=== PATIENT | female | born 1955 | race Caucasian/White ===

== ENCOUNTER 2020-11-16 18:11 | Inpatient (IN) | payer MEDICARE, OTHER ==
[~2020-11-16] VITALS: Ht 137.2 cm; Wt 54.9 kg
--- NOTE | 2020-11-16 18:39 | NUR ---
GPS/RN RECEIVED PT ON THE 5149 HOLD FROM [facility] NO ACUTE DISTRESS NOTED,VSS ON FACE TO SAFE ASSESSMENT NO SI OR HI REPORTED, AMBULATORY WITH FALL RISK. STRONGLY REFUSED TO TOUCH HER, TO DO SKIN ASSESSMENT AND TO SIGN ADMITTING PAPERWORK/CONSENTS. WILL ENDORSE TO MANAGER MARKET TO CONTINUE WITH ADMISSION
[2020-11-16 20:00] VITALS: BP 107/44
--- NOTE | 2020-11-16 20:30 | NUR ---
GPS RN NOTES: RECEIVED PATIENT SLEEPING IN BED, EASILY AROUSABLE. LABILE, UNCOOPERATIVE, EASILY IRRITABLE. PATIENT REFUSED SKIN ASSESSMENT, REFUSED TO SIGN ADMISSION PAPERWORK, REFUSED ACCU CHEK AND MRSA SWAB. WILL CONTINUE TO MONITOR.
--- NOTE | 2020-11-16 21:05 | NUR ---
GPS ASSEMBLER BODY NOTES: RECEIVED PATIENT FROM [facility], ORIGINALLY HOMELESS. PATIENT ADMITTED ON A 5150 HOLD FOR DTS. HOLD WAS PLACED ON 11/15/20 @ 2313. PER HOLD, PATIENT REPORTED SHE HAS BEEN FEELING SUICIDAL FOR A COUPLE OF DAYS AND WANTED TO KILL HERSELF BY CUTTING HER WRIST, BECAUSE THINGS ARE NOT GOING THE WAY SHE WANTS TEM TO GO. SHE ALSO REPORTED CUTTING HERSELF A DAY BEFORE SHE WAS PUT ON HOLD 11/14/20. WHILE AT [facility] PATIENT WAS DEMANDING, LOUD, ASKING STAFF TO WASH HER HANDS, ASKING FOR FOOD, AND LATER STATED "HONESTLY I JUST NEED HELP WITH HOUSING". UPON FACE TO FACE EVALUATION, PATIENT IS A/O X2-3, LABILE, UNCOOPERATIVE, IRRITABLE, REFUSED TO SIGN ADMISSION PAPERWORK, REFUSED ACCU CHEK AND MRSA SWAB. NO S/S OF DISTRESS. RESPIRATION EVEN AND UNLABORED WITH EQUAL RISE AND FALL OF THE CHEST, ON ROOM AIR. DENIES SI AND PAIN AT THIS TIME. PATIENT REFUSED ACCU CHEK, REFUSED BS, REFUSED TO SIGN ALL ADMISSION PAPERWORK AND REFUSED SKIN ASSESSMENT. PATIENT ADVISED OF HER HOLD AND PATIENT RIGHT HANDBOOK AND A GUIDE TO PRESCRIPTION MEDICATION BOOKLET GIVEN. PATIENT IS UNDER THE PSYCHIATRIC CARE OF DR RETANA AND MEDICAL CARE OF [facility]. BOTH HAVE BEEN INFORMED OF PATIENT ADMISSION AND ORDERS CARRIED OUT. PATIENT BELONGINGS WERE INVENTORIED AND CHECKED FOR CONTRABAND. CONTRABAND REMOVED AND STORED IN PATIENT HALLWAY LOCKER. PATIENT ADVANCE DIRECTIVES PREFERENCES, IMMUNIZATIONS QUESTIONER NECESSARY PAPERWORK COMPLETED. PATIENT EDUCATED ON THE USE OF CALL MCINTOSH. PATIENT BED IS LOCKED AND IN LOWEST POSITION AND PATIENT BED SIDE RAILS UP X2 FOR SAFETY. ALL PATIENT CARE NEEDS HAVE BEEN MET AT THIS TIME. PATIENT IS CURRENTLY SLEEPING COMFORTABLY IN BED. WILL CONTINUE TO MONITOR Q15 FOR SAFETY, MOOD AND BEHAVIOR.
[2020-11-16] MEDS ORDERED: BLOOD SUGAR DIAGNOSTIC 1 EACH STRIP IN ONE (21:30)
[2020-11-16] MEDS ORDERED: ACETAMINOPHEN 325 MG TABLET PO PRN (21:30)
[2020-11-16] MEDS ORDERED: ZOLPIDEM TARTRATE 5 MG TABLET PO PRN (21:30)
[2020-11-16] MEDS ORDERED: LORAZEPAM 0.5 MG TABLET PO PRN (21:30)
[2020-11-16] MEDS ORDERED: MAGNESIUM HYDROXIDE 30 ML UDC PO PRN (21:30)
[2020-11-17 00:18] VITALS: BP 107/44
[2020-11-17] MEDS ORDERED: ACET-73 PO (01:10)
[2020-11-17] MEDS ORDERED: ESOM20CA PO (01:10)
[2020-11-17] MEDS ORDERED: ALBU18HF2 INH (01:10)
[2020-11-17] MEDS ORDERED: ALBUTEROL FS 2.5 MG/3 ML VIAL.NEB NEB PRN (02:30)
[2020-11-17 07:48] LABS: CHOLESTEROL 127 mg/dL (<200); HDL CHOLESTEROL 52 mg/dL (40-60); LDL 59 mg/dL (0-99); TRIGLYCERIDES 50 mg/dL (30-150)
[2020-11-17 07:49] LABS: ALBUMIN 2.5 g/dL (3.4-5.0); BILIRUBIN,TOTAL 0.4 mg/dL (0.2-1.0); CALCIUM, SERUM 8.2 mg/dL (8.5-10.1); CREATININE 0.5 mg/dL (0.6-1.3); POTASSIUM 5.1 mmol/L (3.5-5.1); TOTAL PROTEIN, SERUM 5.7 g/dL (6.4-8.2)
[2020-11-17 08:00] VITALS: BP 114/62
[2020-11-17] MEDS: PANTOPRAZOLE 40 MG TABLET.DR PO SCH (08:07)
--- NOTE | 2020-11-17 15:23 | NUR ---
Initial Discharge Plan: Pt is currently homeless and has no point of contacts. Per pt, she would like to be discharged to a SNF. SW will work with the pt and the MD regarding appropriate discharge planning. SW will form a safe and proper discharge.
[2020-11-17 16:00] VITALS: BP 116/71
[2020-11-17 20:00] VITALS: BP 128/75
[2020-11-17] MEDS: MAG HYDROX/AL HYDROX/SIMETH 30 ML UDC PO PRN (20:02)
[2020-11-17] MEDS: SERTRALINE HCL 50 MG TABLET PO SCH (21:57)
[2020-11-18] MEDS: MAG HYDROX/AL HYDROX/SIMETH 30 ML UDC PO PRN (07:36)
[2020-11-18 08:00] VITALS: BP 128/69
[2020-11-18] MEDS: PANTOPRAZOLE 40 MG TABLET.DR PO SCH (08:10)
--- NOTE | 2020-11-18 09:00 | NUR ---
RN NOTE- PT LABILE AT TIMES, OCD, WASHES HANDS REPEATEDLY AND SCRUBS FINGERS UNTIL RED. DEMANDING INTRUSIVE IMPULSIVE DENIES SI HI AH VH PO INTAKE GOOD MED COMPLIANT
[2020-11-18] MEDS: ARIPIPRAZOLE 2 MG TABLET PO SCH (15:51)
[2020-11-18 16:00] VITALS: BP 118/74
[2020-11-18 20:00] VITALS: BP 135/66
[2020-11-18] MEDS: SERTRALINE HCL 50 MG TABLET PO SCH (21:38)
[2020-11-19] MEDS: PANTOPRAZOLE 40 MG TABLET.DR PO SCH (07:56)
[2020-11-19 08:00] VITALS: BP 132/68
[2020-11-19] MEDS: ARIPIPRAZOLE 2 MG TABLET PO SCH (09:00)
--- NOTE | 2020-11-19 09:00 | NUR ---
RN NOTE- UNCHANGED. PT LABILE AT TIMES, OCD, WASHES HANDS REPEATEDLY AND SCRUBS FINGERS UNTIL RED. DEMANDING INTRUSIVE IMPULSIVE DENIES SI HI AH VH PO INTAKE GOOD MED COMPLIANT
[2020-11-19 16:00] VITALS: BP 110/75
[2020-11-19 20:17] VITALS: BP 118/77
[2020-11-19] MEDS: SERTRALINE HCL 50 MG TABLET PO SCH (20:56)
[2020-11-20] MEDS: PANTOPRAZOLE 40 MG TABLET.DR PO SCH ×2 (07:30→08:49)
[2020-11-20 08:00] VITALS: BP 136/79
[2020-11-20] MEDS: ARIPIPRAZOLE 2 MG TABLET PO SCH ×2 (08:49→08:56)
--- NOTE | 2020-11-20 08:56 | NUR ---
Pt. refused to take Protonix med, was explained on the importance and still refusing and said it doesn't work for her. Pt. also refused to Abilify, was explained in the importance and still refusing and said she will go home today and it will make her sleepy.
--- NOTE | 2020-11-20 11:50 | NUR ---
Discharge Note: Pt will be discharged to [facility] ([facility]) located at [address] [place] [id number]; ([phone]). Pt will be transported via [facility] at 3PM. SW does not have anyone to inform about the pts discharge. Upon discharge, the pt appears to be in a euthymic mood and presented with a congruent affect. Pt appears to be alert and oriented x4 (time, place, self and situation). Pt denies both suicidal and homicidal ideation as well as auditory and visual hallucinations. Pt appears to be ambulatory with an unsteady gait. Pt appears to be well groomed and appropriately dressed. ALYSON provided patient with the 2019 [facility]sp Program list. SW provided patient with a copy of the [facility] homeless directory which provides information on locations for hot meals, sack lunches, food pantries, and showers. ALYSON provided an additional list of mental health clinics: [facility] [address] [place] [address] ([phone]); [facility] [address] [place] [address] ([phone]); a list of medical clinics; [facility] [address] [facility] [address], [place]. [place], ; [facility] [address] [facility] [address], [place]. ALYSON Provided [facility] [address] [place] [address]: ([phone]). Patient was provided with a brief substance abuse intervention and referred to the following substance abuse programs: [facility] Substance Abuse Self-helpline ([phone]); [facility] [address] [place] [address] ([phone]); [facility] [address] [facility] [address] ([phone]); [facility] ([phone]); [facility] ([phone]); [facility] ([phone]); [facility] ([phone]). Pt will continue to be under the care of psychiatrist, Dr. Mcc[place], [place] [address] [facility] [address]; . Pt will be under the care of school commissioner, Dr. Gonzalez, located at [address] [place] [address]; . Pts homeless waiver, choice of vendor form, and multidisciplinary exit care form were done, printed, signed, and given to the patient.
--- NOTE | 2020-11-20 12:31 | NUR ---
Dr. Mccord gave an order to D/C pt. to [facility] and to follow up with psych and medical doctors. Pt. without distress, denies suicidal and homicidal. Belongings ready and pt. signed the discharge papers. Addendum: 11/20/20 at 1235 by ESA BAKER RN Dr. Alan made aware of the discharge and reconciled the meds.
--- NOTE | 2020-11-20 14:03 | NUR ---
Report given to Nusrat over the facility
--- NOTE | 2020-11-20 15:30 | NUR ---
Pt. left the unit via ambulance and transported via a gurney with belongings. Left without distress, v/s taken: BP 125/75, LA 92, RR 18, temp 97.8 and oxygen sat 98%.
== END 2020-11-20 15:30 | DRG 885 ==
LOC: GPS 18:11
PROVIDERS: ADMIT Psychiatry & Neurology Psychiatry; ATTEND Nurse Practitioner Acute Care
DX: F29 Unspecified psychosis not due to a substance or known physiological condition (principal); E44.0 Moderate protein-calorie malnutrition; R45.851 Suicidal ideations; F41.9 Anxiety disorder, unspecified; F60.5 Obsessive-compulsive personality disorder; J45.909 Unspecified asthma, uncomplicated; F43.10 Post-traumatic stress disorder, unspecified; F32.9 Major depressive disorder, single episode, unspecified; F20.9 Schizophrenia, unspecified; K21.9 Gastro-esophageal reflux disease without esophagitis; Z20.822 Contact with and (suspected) exposure to COVID-19; E88.09 Other disorders of plasma-protein metabolism, not elsewhere classified
CPT/HCPCS: 36415; 80053-TC; 80061-TC

== ENCOUNTER 2021-11-23 21:03 | Inpatient (IN) | payer MEDICARE, OTHER ==
[~2021-11-23] VITALS: Ht 152.4 cm; Wt 64.4 kg
[~2021-11-23 21:03] MED LIST: ACET-73 PO; ALBU18HF2 INH; ESOM20CA PO
--- NOTE | 2021-11-23 21:20 | NUR ---
PATIENT GARRISON FROM SNF FOR EVALUATION OF LEFT HAND INFECTED WOUND AND PAIN. PATIENT A/O X 4, RR EVEN AND UNLABORED, NO SOB NOTED. PATIENT CONNECTE TO MONITORS.
[2021-11-23] MEDS ORDERED: VANCOMYCIN 1 GM in IV D5W 250 ML IV ONE (21:30)
[2021-11-23] MEDS ORDERED: VANCOMYCIN 1 GM VIAL ONE (21:36)
--- NOTE | 2021-11-23 21:38 | NUR ---
BLOOD WORK COLLECTED SENT TO LAB
[2021-11-23 21:43] LABS: BASOPHILS % (AUTO) 0.4 % (0.0-2.0); EOSINOPHILS % (AUTO) 0.7 % (0.0-6.0); HEMATOCRIT 32 % (33-45); HEMOGLOBIN 9.6 g/dL (11.5-14.8); LYMPHOCYTES # (AUTO) 1.4 K/uL (0.8-4.8); LYMPHOCYTES % (AUTO) 18.1 % (20.0-44.0); MEAN CORPUSCULAR HGB CONC 30 g/dl (31.0-36.0); MEAN CORPUSCULAR VOLUME 72 fL (82-100); MONOCYTES # (AUTO) 0.7 K/uL (0.1-1.30); MONOCYTES % (AUTO) 8.9 % (2.0-12.0); NEUTROPHILS # (AUTO) 5.7 K/uL (1.8-8.9); NEUTROPHILS % (AUTO) 71.9 % (43.0-81.0); PLATELET COUNT (AUTO) 283 K/uL (150-450); RED BLOOD CELL COUNT(AUTO) 4.48 MIL/uL (4.0-5.2)
[2021-11-23 21:52] LABS: CALCIUM, SERUM 8.6 mg/dL (8.5-10.1); CREATININE 0.6 mg/dL (0.6-1.3); POTASSIUM 4.4 mmol/L (3.5-5.1)
--- NOTE | 2021-11-23 21:57 | NUR ---
COVID SWAB DONE AND SENT TO LAB
[2021-11-23] MEDS ORDERED: MORPHINE SULFATE INJ 2 MG/ML DISP.SYRIN IV ONE (22:00)
[2021-11-23] MEDS ORDERED: ONDANSETRON HCL/PF 4 MG/2 ML VIAL IV ONE (22:00)
[2021-11-23] MEDS ORDERED: ONDANSETRON HCL/PF 4 MG/2 ML VIAL ONE (22:03)
[2021-11-23] MEDS ORDERED: MORPHINE SULFATE INJ 4 MG/ML DISP.SYRIN ONE (22:03)
--- NOTE | 2021-11-23 22:04 | NUR ---
XRAY AT BEDSIDE
[2021-11-23 22:36] LABS: BASOPHILS % (MANUAL) 0 % (0.0-2.0); EOSINOPHILS % (MANUAL) 1 % (0-4); LYMPHOCYTES % (MANUAL) 14 % (16-48); MONOCYTES % (MANUAL) 5 % (0-11.0); NEUTROPHILS % (MANUAL) 80 (42-76)
--- NOTE | 2021-11-24 00:11 | NUR ---
ROOM 326-1
[2021-11-24] MEDS ORDERED: ONDANSETRON HCL/PF 4 MG/2 ML VIAL IVP PRN (00:30)
[2021-11-24] MEDS ORDERED: ACETAMINOPHEN 325 MG TABLET PO PRN (00:30)
[2021-11-24 00:33] LABS: IRON, SERUM 25 ug/dl (50-175); TOTAL IRON BINDING CAPACITY 377 ug/dl (250-450)
[2021-11-24 00:47] LABS: FERRITIN 9 ng/mL (8-388)
[2021-11-24] MEDS ORDERED: ALBUTEROL FS 2.5 MG/3 ML VIAL.NEB IH PRN (01:00)
--- NOTE | 2021-11-24 01:10 | NUR ---
REPORT GIVEN TO CHARGE NURSE
--- NOTE | 2021-11-24 01:29 | NUR ---
PATIENT TRANSFERRED, VSS, NO ACUTE DISTRESS NOTED.
[2021-11-24 01:40] VITALS: BP 108/63
--- NOTE | 2021-11-24 01:40 | NUR ---
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 DIAGNOSED WITH CELLULITIS, SITE WITH REDNESS, SCABBED. INCREASING PAIN ON LIGHT TOUCH. HAS ABD WOUND STATED UNKNOWN ORIGIN. PCTURES TAKEN BY PRIMARY RN. DRESSING CHANGED ON ABDOMEN, SITE WITH SLIGHT DRAINAGE. ORIENTED TO ROOM FACILITIES, CALL LIGHT USE REVIEWED, APPEARS TO UNDERSTAND. PLAN OF CARE AND MEDICATION REGIMEN DISCUSSED WITH PATIENT, WELL UNDERSTOOD. LOVENOX 40 MG SQ ADMINISTERED ORDERED. ALL NEEDS MADE. SAFETY PRECAUTIONS EMPHASIZED. REMINDED TO CALL STAFF FOR ANY ASSISTANCE OR DISCOMFORTS. NO SOB. KEPT COMFORTABLE.
[2021-11-24] MEDS: ENOXAPARIN SODIUM 40 MG/0.4 ML DISP.SYRIN SQ SCH ×2 (01:47→21:35)
--- NOTE | 2021-11-24 02:10 | NUR ---
MSRN VERBALIZES INCREASING PAIN ON LEFT ARM, AWAITING FOR ORDERS. REMAINS CALM AND COOPERATIVE.
--- NOTE | 2021-11-24 03:20 | NUR ---
MSRN ASLEEP FOR NOW, CLOSELY WATCHED.
--- NOTE | 2021-11-24 06:21 | NUR ---
RN NOTE: PATIENT WAS SEEN AND ASSESSED. SKIN SHOWS SOME WOUND ON THE HAND AND ABDOMEN. TOOK PHOTOS FOR FURTHER EVALUATION. WOUND CONSULT PUT IN.
--- NOTE | 2021-11-24 07:30 | NUR ---
MS RN OPENING NOTES RECEIVED PATIENT ON BED AWAKE AND A/O X4. ON ROOM AIR TOLERATING WELL. NO SOB NOTED. NOT IN DISTRESS. WITH COMPLAINTS OF PAIN AT THE LEFT HAND AT THE SCALE OF 6/10. COMFORT MEASURES PROVIDED. WITH IV ACCESS AT THE RIGHT HAND G20, SALINE LOCKED, PATENT AND INTACT. SAFETY MEASURES IN PLACED. CALL LIGHT WITHIN REACH. BED ON LOWEST LOCKED POSITION, SIDE RAILS UP X2. WILL CONTINUE TO MONITOR.
[2021-11-24] MEDS ORDERED: HYDR-4303 PO (07:57)
[2021-11-24] MEDS ORDERED: LOPE2TAB25 PO (07:57)
[2021-11-24] MEDS ORDERED: OXYC-128 PO (07:57)
[2021-11-24] MEDS ORDERED: LEVO50TA8 PO (07:57)
[2021-11-24] MEDS ORDERED: GEL100GE TD (07:57)
[2021-11-24] MEDS ORDERED: MAGN400O6 PO (07:57)
[2021-11-24] MEDS ORDERED: ARIP5TAB10 PO (07:57)
[2021-11-24] MEDS ORDERED: ESOM40CA PO (07:57)
[2021-11-24] MEDS ORDERED: ACET-868 PO (07:57)
[2021-11-24] MEDS ORDERED: SERT50TA PO (07:57)
[2021-11-24] MEDS ORDERED: BISA10SU11 RC (07:57)
[2021-11-24] MEDS ORDERED: CLIN60LO2 TP (07:57)
[2021-11-24] MEDS ORDERED: CHOL100043 PO (07:57)
[2021-11-24] MEDS ORDERED: ASPI-1420 PO (07:57)
[2021-11-24] MEDS ORDERED: IPRA3AMP23 IH (07:57)
[2021-11-24] MEDS ORDERED: LORA-259 PO (07:57)
[2021-11-24] MEDS ORDERED: BETA15CR4 TP (07:57)
[2021-11-24] MEDS ORDERED: CYAN500T64 PO (07:57)
[2021-11-24] MEDS ORDERED: NA P133E RC (07:57)
[2021-11-24 08:00] VITALS: BP 120/64
[2021-11-24] MEDS: VANCOMYCIN 0.75 GM in IV D5W 250 ML IV SCH ×2 (08:56→16:05)
[2021-11-24] MEDS: PANTOPRAZOLE 40 MG TABLET.DR PO SCH (08:58)
--- NOTE | 2021-11-24 08:59 | NUR ---
WOUND CARE CONSULT: PT STATES HAS NOT STARTED HER BREAKFAST YET. NO SKIN ASSESSMENT YET DUE TO PT EATING BREAKFAST. WILL SEE PT PT CONDITION PERMITS. REVIEWED CHART, NURSING DOCUMENTATION AND PHOTOS WHICH INDICATE HAND WOUND AND ABDOMINAL WOUND, PRESENT ON ADMISSION. DR AYOUB NOTIFIED OF SURGICAL CONSULT REQUEST. MD IN AGREEMENT WITH PLAN OF CARE.
[2021-11-24] MEDS: MORPHINE SULFATE INJ 2 MG/ML DISP.SYRIN IV PRN ×3 (09:00→21:59)
[2021-11-24 16:00] VITALS: BP 121/60
--- NOTE | 2021-11-24 19:34 | NUR ---
MS RN CLOSING NOTES PATIENT ON BED AWAKE AND A/O X4. ON ROOM AIR TOLERATING WELL. NO SOB NOTED. NOT IN DISTRESS. WITH NO COMPLAINTS OF PAIN OR DISCOMFORT AT THIS TIME. COMFORT MEASURES PROVIDED. WITH IV ACCESS AT THE RIGHT HAND G20, SALINE LOCKED, PATENT AND INTACT. DUE MEDS GIVEN. SAFETY MEASURES IN PLACED. CALL LIGHT WITHIN REACH. BED ON LOWEST LOCKED POSITION, SIDE RAILS UP X2. WILL ENDORSE TO NEXT SHIFT FOR JIMI.
--- NOTE | 2021-11-24 19:38 | NUR ---
MS RN OPENING NOTES: RECEIVED PATIENT AWAKE IN BED , BED IN LOW POSITION CALL LIGHTS WITHIN REACH, NO COMPLAIN OF PAIN AND DISCOMFORT AT THIS TIME, ON ROOM AIR SATURATING WELL, NO SOB WAS OBSERVED. WITH IV LINE AT R WRIST#20 SL, PATIENT KEPT CLEAN AND DRY ALL NEEDS MET WILL CONTINUE TO MONITOR.
[2021-11-24] MEDS ORDERED: CEFEPIME 1 GM in IV D5W 50 ML IV SCH (21:00)
[2021-11-24] MEDS: CEFEPIME 2 GM in IV D5W 100 ML IV SCH (21:35)
[2021-11-25] MEDS: VANCOMYCIN 0.75 GM in IV D5W 250 ML IV SCH ×3 (00:08→20:29)
[2021-11-25] MEDS: MORPHINE SULFATE INJ 2 MG/ML DISP.SYRIN IV PRN ×5 (05:25→22:58)
--- NOTE | 2021-11-25 06:53 | NUR ---
RN CLOSING NOTE PATIENT AWAKE IN BED. A/OX4. NO S/S OF DISTRESS, BREATHING W/O DIFFICULTY ON ROOM AIR. R-WRIST #[address] SL[address] ME[address]: BED LOCKED AND AT LOWEST POSITION, RAILS UP X2, CALL MCINTOSH WITHIN REACH. WILL ENDORSE TO NEXT SHIFT FOR JIMI.
[2021-11-25 08:32] LABS: CALCIUM, SERUM 8.7 mg/dL (8.5-10.1); CREATININE 0.5 mg/dL (0.6-1.3); MAGNESIUM 2.1 mg/dL (1.8-2.4); PHOSPHORUS 4.6 mg/dL (2.5-4.9); POTASSIUM 4.5 mmol/L (3.5-5.1)
[2021-11-25] MEDS: PANTOPRAZOLE 40 MG TABLET.DR PO SCH (09:23)
[2021-11-25] MEDS ORDERED: MAGNESIUM HYDROXIDE 30 ML UDC PO PRN (10:00)
[2021-11-25] MEDS ORDERED: BISACODYL SUPP (10 MG) 10 MG/SUPP.RECT SUPP.RECT RC PRN (10:00)
[2021-11-25] MEDS ORDERED: LORAZEPAM 1 MG TABLET PO PRN (10:00)
[2021-11-25] MEDS ORDERED: ALBUTEROL FS 2.5 MG/0.5 ML VIAL.NEB IH PRN (10:30)
[2021-11-25] MEDS ORDERED: IPRATROPIUM NEB FS 0.5 MG/2.5 ML AMPUL.NEB NEB PRN (10:30)
[2021-11-25 10:45] LABS: BASOPHILS % (AUTO) 0.5 % (0.0-2.0); EOSINOPHILS % (AUTO) 1.7 % (0.0-6.0); HEMATOCRIT 32 % (33-45); HEMOGLOBIN 9.4 g/dL (11.5-14.8); LYMPHOCYTES # (AUTO) 1.6 K/uL (0.8-4.8); LYMPHOCYTES % (AUTO) 26.9 % (20.0-44.0); MEAN CORPUSCULAR HGB CONC 29 g/dl (31.0-36.0); MEAN CORPUSCULAR VOLUME 73 fL (82-100); MONOCYTES # (AUTO) 0.6 K/uL (0.1-1.30); MONOCYTES % (AUTO) 10.5 % (2.0-12.0); NEUTROPHILS # (AUTO) 3.6 K/uL (1.8-8.9); NEUTROPHILS % (AUTO) 60.4 % (43.0-81.0); PLATELET COUNT (AUTO) 245 K/uL (150-450); RED BLOOD CELL COUNT(AUTO) 4.43 MIL/uL (4.0-5.2); WHITE BLOOD COUNT (AUTO) 5.9 K/uL (4.3-11.0)
[2021-11-25] MEDS: CEFEPIME 2 GM in IV D5W 100 ML IV SCH ×2 (11:13→21:24)
[2021-11-25 11:55] LABS: BAND % (MANUAL) 2 % (0.0-5.0); EOSINOPHILS % (MANUAL) 1 % (0-4); LYMPHOCYTES % (MANUAL) 26 % (16-48); MONOCYTES % (MANUAL) 6 % (0-11.0); NEUTROPHILS % (MANUAL) 65 (42-76)
--- NOTE | 2021-11-25 19:43 | NUR ---
MS RN OPENING NOTES: RECEIVED PATIENT SLEEP IN BED COMFORTABLY, BED IN LOW POSITION CALL LIGHTS WITHIN REACH, NO COMPLAIN OF PAIN AND DISCOMFORT AT THIS TIME, ON ROOM AIR SATURATING WELL, WITH IV LINE AT RIGHT WRIST#20 SL, PATIENT KEPT CLEAN AND DRY ALL NEEDS MET WILL CONTINUE TO MONITOR.
[2021-11-25 20:00] VITALS: BP 113/63
[2021-11-25] MEDS: BETAMETHASONE DIP 0.05% CREAM 15 GM TUBE TP SCH (21:23)
[2021-11-25] MEDS: ENOXAPARIN SODIUM 40 MG/0.4 ML DISP.SYRIN SQ SCH (21:24)
[2021-11-26] MEDS: MORPHINE SULFATE INJ 2 MG/ML DISP.SYRIN IV PRN ×4 (03:06→15:35)
--- NOTE | 2021-11-26 06:14 | NUR ---
MS RN CLOSING NOTES: PATIENT SLEEP IN BED COMFORTABLY AROUSABLE TO VERBAL STIMULI, BED IN LOW POSITION, CALL LIGHTS WITHIN REACH, ON ROOM AIR SATURATING WELL, NO COMPLAIN OF PAIN AND DISCOMFORT AT THIS TIME, PATIENT IS A/OX 4 ABLE TO MAKE NEEDS KNOWN, PATIENT KEPT CLEAN AND DRY ALL NEEDS MET WILL CONTINUE TO MONITOR.
[2021-11-26] MEDS ORDERED: PANTOPRAZOLE 40 MG TABLET.DR PO SCH (07:30)
--- NOTE | 2021-11-26 07:30 | NUR ---
MS RN OPENING NOTES RECEIVED PATIENT ON BED AWAKE AND A/O X4. ON ROOM AIR, PATIENT IS TOLERATING WELL. NO SOB AND NO SIGNS AND SYMPTOMS OF DISTRESS NOTED. WITH NO COMPLAINTS OF PAIN OR DISCOMFORT AT THIS TIME. COMFORT MEASURES PROVIDED. WITH IV ACCESS AT THE RIGHT HAND G20, SALINE LOCKED, PATENT AND INTACT. DUE MEDS GIVEN. SAFETY MEASURES IN PLACED. CALL LIGHT WITHIN REACH. BED ON LOWEST LOCKED POSITION, SIDE RAILS UP X2. WILL CONTINUE TO MONITOR PATIENT
--- NOTE | 2021-11-26 07:30 | NUR ---
MS THIAGO OPENING NOTES RECEIVED PATIENT ON BED AWAKE AND A/O X4. ON ROOM AIR PATIENT IS TOLERATING WELL. NO SIGNS AND SYMPTOMS OF SOB AJDNOTED. NOT IN DISTRESS. WITH NO COMPLAINTS OF PAIN OR DISCOMFORT AT THIS TIME. COMFORT MEASURES PROVIDED. WITH IV ACCESS AT THE RIGHT HAND G20, SALINE LOCKED, PATENT AND INTACT. DUE MEDS GIVEN. SAFETY MEASURES IN PLACED. CALL LIGHT WITHIN REACH. BED ON LOWEST LOCKED POSITION, SIDE RAILS UP X2. WILL ENDORSE TO NEXT SHIFT FOR JIMI. Addendum: 11/26/21 at 1559 by CHRISTIE RODNEY RN ERROR
[2021-11-26 08:00] VITALS: BP 118/60
[2021-11-26 08:29] LABS: BASOPHILS % (AUTO) 0.7 % (0.0-2.0); EOSINOPHILS % (AUTO) 2.8 % (0.0-6.0); HEMATOCRIT 29 % (33-45); HEMOGLOBIN 8.7 g/dL (11.5-14.8); LYMPHOCYTES # (AUTO) 1.5 K/uL (0.8-4.8); LYMPHOCYTES % (AUTO) 26.7 % (20.0-44.0); MEAN CORPUSCULAR HGB CONC 30 g/dl (31.0-36.0); MEAN CORPUSCULAR VOLUME 72 fL (82-100); MONOCYTES # (AUTO) 0.6 K/uL (0.1-1.30); MONOCYTES % (AUTO) 10.7 % (2.0-12.0); NEUTROPHILS # (AUTO) 3.3 K/uL (1.8-8.9); NEUTROPHILS % (AUTO) 59.1 % (43.0-81.0); PLATELET COUNT (AUTO) 250 K/uL (150-450); WHITE BLOOD COUNT (AUTO) 5.7 K/uL (4.3-11.0)
[2021-11-26 08:41] LABS: CALCIUM, SERUM 8.6 mg/dL (8.5-10.1); CREATININE 0.5 mg/dL (0.6-1.3); MAGNESIUM 1.7 mg/dL (1.8-2.4); PHOSPHORUS 4.8 mg/dL (2.5-4.9); POTASSIUM 4.2 mmol/L (3.5-5.1)
[2021-11-26] MEDS: ASPIRIN EC 81 MG TABLET.DR PO SCH (09:00)
[2021-11-26] MEDS: VANCOMYCIN 0.75 GM in IV D5W 250 ML IV SCH ×2 (09:04→20:03)
[2021-11-26] MEDS: ARIPIPRAZOLE 5 MG TABLET PO SCH (09:05)
[2021-11-26] MEDS: PANTOPRAZOLE 40 MG TABLET.DR PO SCH (09:06)
[2021-11-26] MEDS: CYANOCOBALAMIN 500 MCG TABLET PO SCH (09:07)
[2021-11-26] MEDS: CHOLECALCIFEROL 1,000 UNIT TABLET (VIT D3) PO SCH (09:08)
[2021-11-26] MEDS: LEVOTHYROXINE SODIUM 50 MCG TABLET PO SCH (09:08)
[2021-11-26] MEDS: SERTRALINE HCL 50 MG TABLET PO SCH (09:09)
[2021-11-26] MEDS ORDERED: IV NS 0.9% 250 ML IV ONE (09:13)
[2021-11-26] MEDS ORDERED: CT SWABBABLE VALVE TRANS SET 1 EA INFUS.SET MC ONE (09:13)
[2021-11-26] MEDS ORDERED: IOHEXOL-300 100 ML VIAL IV ONE (09:13)
[2021-11-26] MEDS ORDERED: MAGNESIUM OXIDE 400 MG TABLET PO ONE (10:00)
[2021-11-26] MEDS: CEFEPIME 2 GM in IV D5W 100 ML IV SCH ×2 (10:19→21:14)
[2021-11-26] MEDS: BETAMETHASONE DIP 0.05% CREAM 15 GM TUBE TP SCH ×2 (10:28→21:14)
[2021-11-26 16:00] VITALS: BP 108/70
[2021-11-26] MEDS ORDERED: HYDROCODONE/APAP 7.5/325MG 1 EACH TABLET PO PRN (17:00)
--- NOTE | 2021-11-26 19:30 | NUR ---
RN OPENING NOTES RECEIVED PT IN BED, AWAKE, WATCHING TV. AOx4, ABLE TO MAKE NEEDS KNOWN. ON RA AND TOLERATING WELL. NO SOB NOTED. NO S/SX OF RESPIRATORY DISTRESS NOTED. IV ACCESS IN R HAND #20G. IV IS INTACT, PATENT, AND FLUSHING WELL. SAFETY PRECAUTIONS IN PLACE: BED IN LOWEST, LOCKED POSITON, SIDERAILS UPx2, AND BRAKES ON. TABLE AND CALL LIGHT WITHIN REACH. WILL CONTINUE TO MONITOR.
[2021-11-26] MEDS: HYDROCODONE/APAP 10/325MG TABLET PO PRN (19:48)
--- NOTE | 2021-11-26 19:48 | NUR ---
RN NOTES ADMINISTERED NORCO FOR PAIN PER MD ORDER. VS WNL. WILL CONTINUE TO MONITOR.
[2021-11-26 20:00] VITALS: BP 121/70
[2021-11-26] MEDS: ENOXAPARIN SODIUM 40 MG/0.4 ML DISP.SYRIN SQ SCH (21:23)
[2021-11-26] MEDS ORDERED: IPRATROPIUM NEB FS 0.5 MG/2.5 ML AMPUL.NEB NEB SCH (23:30)
[2021-11-26] MEDS ORDERED: ALBUTEROL FS 2.5 MG/0.5 ML VIAL.NEB NEB SCH (23:30)
[2021-11-26] MEDS: HYDROCODONE/APAP 5/325MG TABLET PO PRN (23:47)
--- NOTE | 2021-11-26 23:47 | NUR ---
RN NOTES ADMINISTERED NORCO FOR PAIN PER MD ORDER. VS WNL. WILL CONTINUE TO MONITOR.
[2021-11-27] MEDS: HYDROCODONE/APAP 10/325MG TABLET PO PRN ×2 (03:35→12:00)
--- NOTE | 2021-11-27 03:35 | NUR ---
RN NOTES ADMINISTERED NORCO FOR PAIN PER MD ORDER. VS WNL. WILL CONTINUE TO MONITOR.
--- NOTE | 2021-11-27 06:40 | NUR ---
RN CLOSING NOTES PT IN BED, AWAKE. AOx4, ABLE TO MAKE NEEDS KNOWN. ON RA AND TOLERATING WELL. NO SOB NOTED. NO S/SX OF RESPIRATORY DISTRESS NOTED. IV ACCESS IN R HAND #20G. IV IS INTACT, PATENT, AND FLUSHING WELL. ALL ORDERS CARRIED OUT. ALL NEEDS MET. PT KEPT CLEAN AND DRY. SAFETY PRECAUTIONS IN PLACE: BED IN LOWEST, LOCKED POSITON, SIDERAILS UPx2, AND BRAKES ON. TABLE AND CALL LIGHT WITHIN REACH. WILL ENDORSE TO ONCOMING SHIFT FOR JIMI.
[2021-11-27 06:42] LABS: CALCIUM, SERUM 8.8 mg/dL (8.5-10.1); CREATININE 0.4 mg/dL (0.6-1.3); MAGNESIUM 1.9 mg/dL (1.8-2.4); PHOSPHORUS 5.5 mg/dL (2.5-4.9); POTASSIUM 4.3 mmol/L (3.5-5.1)
[2021-11-27 06:58] LABS: BASOPHILS % (AUTO) 0.6 % (0.0-2.0); EOSINOPHILS % (AUTO) 3.3 % (0.0-6.0); HEMATOCRIT 30 % (33-45); HEMOGLOBIN 9.1 g/dL (11.5-14.8); LYMPHOCYTES # (AUTO) 1.7 K/uL (0.8-4.8); LYMPHOCYTES % (AUTO) 33.3 % (20.0-44.0); MEAN CORPUSCULAR HGB CONC 30 g/dl (31.0-36.0); MEAN CORPUSCULAR VOLUME 72 fL (82-100); MONOCYTES # (AUTO) 0.5 K/uL (0.1-1.30); NEUTROPHILS # (AUTO) 2.8 K/uL (1.8-8.9); NEUTROPHILS % (AUTO) 52.8 % (43.0-81.0); PLATELET COUNT (AUTO) 231 K/uL (150-450); RED BLOOD CELL COUNT(AUTO) 4.18 MIL/uL (4.0-5.2); WHITE BLOOD COUNT (AUTO) 5.2 K/uL (4.3-11.0)
--- NOTE | 2021-11-27 07:07 | NUR ---
MS RN OPENING NOTES RECEIVED PATIENT AWAKE AND ALERT IN BED. A/O x4, ON ROOM AIR. NO S/S OF RESPIRATORY DISTRESS. PATIENT ABLE TO MAKE NEEDS KNOWN. NO PAIN OR DISCOMFORT NOTED OR VOICED. IV ACCESS L FA #22 SL, INTACT AND PATENT. PATIENT CONTINENT, USES BED ARIZA. AMBULATORY WITH FRONT WHEEL WALKER. SKIN ISSUES: L HAND BETWEEN 3RD AND 4TH DIGIT CELLULITIS, R ARM/ELBOW RASH. SAFETY MEASURES IN PLACE: BED IN LOWEST POSITION AND LOCKED, SIDE RAILS UP x2, CALL LIGHT WITHIN REACH. WILL CONTINUE TO MONITOR FOR ANY CHANGES.
[2021-11-27] MEDS: PANTOPRAZOLE 40 MG TABLET.DR PO SCH (07:58)
[2021-11-27] MEDS: LEVOTHYROXINE SODIUM 50 MCG TABLET PO SCH (07:58)
[2021-11-27 08:00] VITALS: BP 109/59
[2021-11-27] MEDS: HYDROCODONE/APAP 5/325MG TABLET PO PRN ×2 (08:01→16:03)
--- NOTE | 2021-11-27 08:05 | NUR ---
RN NOTES: PATIENT COMPLAINED OF PAIN 10/16, PRN NARCO 5-325 MG GIVEN @0801. WILL CONTINUE TO MONITOR.
[2021-11-27] MEDS: VANCOMYCIN 0.75 GM in IV D5W 250 ML IV SCH (08:29)
[2021-11-27] MEDS: CHOLECALCIFEROL 1,000 UNIT TABLET (VIT D3) PO SCH (08:34)
[2021-11-27] MEDS: CYANOCOBALAMIN 500 MCG TABLET PO SCH (08:35)
[2021-11-27] MEDS: ASPIRIN EC 81 MG TABLET.DR PO SCH (08:35)
[2021-11-27] MEDS: ARIPIPRAZOLE 5 MG TABLET PO SCH (08:35)
[2021-11-27] MEDS: SERTRALINE HCL 50 MG TABLET PO SCH (08:35)
[2021-11-27] MEDS: BETAMETHASONE DIP 0.05% CREAM 15 GM TUBE TP SCH (08:47)
[2021-11-27] MEDS: CEFEPIME 2 GM in IV D5W 100 ML IV SCH (09:41)
[2021-11-27] MEDS ORDERED: HYDR-3980 PO (11:22)
[2021-11-27] MEDS ORDERED: NYST15OI TP (11:22)
[2021-11-27] MEDS ORDERED: FLUC200T8 PO (11:22)
[2021-11-27] MEDS ORDERED: NEOM28.36 TP (11:22)
--- NOTE | 2021-11-27 12:05 | NUR ---
RN NOTES: PATIENT COMPLAINED OF PAIN 10/10, PRN NARCO 10-325 MG GIVEN @1200. WILL CONTINUE TO MONITOR.
[2021-11-27] MEDS ORDERED: FLUCONAZOLE (100 MG) 100 MG TABLET PO SCH (12:30)
--- NOTE | 2021-11-27 16:08 | NUR ---
RN NOTES: PATIENT COMPLAINED OF PAIN 5/10, PRN NARCO 5-325 MG GIVEN @1603. WILL CONTINUE TO MONITOR.
[2021-11-27] MEDS ORDERED: NEOMY SULF/BACITRAC ZN/POLY 15 GM TUBE TP SCH (17:00)
--- NOTE | 2021-11-27 17:10 | NUR ---
HANDBAG PARTS CUTTER NOTES PATIENT DISCHARGED HOME. A/O x4, STABLE ON ROOM AIR. NO S/S OF RESPIRATORY DISTRESS. PATIENT GIVEN DISCHARGE INSTRUCTIONS AND HEALTH EDUCATION, VERBALIZED UNDERSTANDING. PATIENT VERBALIZED UNDERSTANDING OF DISCHARGE MEDICATION AND TREATMENTS. ALL BELONGINGS CONFIRMED WITH PATIENT. FACILITY: [facility] CALLED, REPORT GIVEN TO THIAGO MENDOZA. IV ACCESS REMOVED ON L FA, PRESSURE DRESSING APPLIED, NO S/S OF BLEEDING AT THIS TIME. ID BAND REMOVED. PATIENT LEFT UNIT @1705, ACCOMPANIED BY 2 senior mobile solutions architect. CHARGE NURSE AND MD AWARE OF DISCHARGE.
== END 2021-11-27 17:10 | DRG 571 ==
LOC: ER 21:04 → MED 11-24 00:12
PROVIDERS: ADMIT Nurse Practitioner Acute Care; ATTEND Registered Nurse
PROC: 0KBD0ZZ Excision of Left Hand Muscle, Open Approach (ICD-10-PCS; principal; 2021-11-24)
PROC: 0JB80ZZ Excision of Abdomen Subcutaneous Tissue and Fascia, Open Approach (ICD-10-PCS; 2021-11-24)
DX: L03.114 Cellulitis of left upper limb (principal); L03.311 Cellulitis of abdominal wall; T85.79XA Infection and inflammatory reaction due to other internal prosthetic devices, implants and grafts, initial encounter; T81.83XA Persistent postprocedural fistula, initial encounter; T85.898A Other specified complication of other internal prosthetic devices, implants and grafts, initial encounter; J44.9 Chronic obstructive pulmonary disease, unspecified; F43.10 Post-traumatic stress disorder, unspecified; K21.9 Gastro-esophageal reflux disease without esophagitis; E03.9 Hypothyroidism, unspecified; Y83.2 Surgical operation with anastomosis, bypass or graft as the cause of abnormal reaction of the patient, or of later complication, without mention of misadventure at the time of the procedure; Z98.84 Bariatric surgery status; D50.9 Iron deficiency anemia, unspecified; J45.909 Unspecified asthma, uncomplicated; F20.9 Schizophrenia, unspecified; F31.9 Bipolar disorder, unspecified; F42.9 Obsessive-compulsive disorder, unspecified; Z88.5 Allergy status to narcotic agent
CPT/HCPCS: 36415; 73130-TC; 80048-TC; 80061-TC; 80202-TC; 82728-TC; 82962-TC; 83540-TC; 83605-TC; 83735-TC; 84100-TC; 85025-TC; 87040-TC; 87070-TC; 87081-TC; A6253; A6403; C9803; G0378; J0692; J1650; J2270; J2405; J3370; J7050; J7060; Q9967

== ENCOUNTER 2022-02-01 20:11 | Inpatient (IN) | payer MEDICARE, OTHER ==
[~2022-02-01] VITALS: Ht 165.1 cm; Wt 61.0 kg
[~2022-02-01 20:11] MED LIST changes: -ACET-73 PO; +ACET-868 PO; +ARIP5TAB10 PO; +ASPI-1420 PO; +BETA15CR4 TP; +BISA10SU11 RC; +CHOL100043 PO; +CLIN60LO2 TP; +CYAN500T64 PO; -ESOM20CA PO; +ESOM40CA PO; +FLUC200T8 PO; +GEL100GE TD; +HYDR-3980 PO; +HYDR-4303 PO; +IPRA3AMP23 IH; +LEVO50TA8 PO; +LOPE2TAB25 PO; +LORA-259 PO; +MAGN400O6 PO; +NA P133E RC; +NEOM28.36 TP; +NYST15OI TP; +OXYC-128 PO; +SERT50TA PO
--- NOTE | 2022-02-01 21:05 | NUR ---
GARRISON FROM [facility] FOR NECROTIC SKIN ON RIGHT WRIST AND IN BETWEEN 3RD AND 4TH DIGIT OF THE LEFT HAND SINCE OCTOBER, SENT BY CAMPUS WELLNESS COORDINATOR. PATIENT ALERT AND ORIENTED X4. AMBULATORY BUT BROUGHT IN BY STRETCHER. PATIENT NOT IN ANY RESPIRATORY DISTRESS, AND DOES NOT PRESENT WITH ANY FEVER. IN BED 02 ON MONITOR AND POX, SEEN BY ENVIRONMENTAL STUDIES PROFESSOR AT TRIAGE.
--- NOTE | 2022-02-01 21:14 | NUR ---
ZABRINA COLLECTED AND SENT TO LAB
--- NOTE | 2022-02-01 21:20 | NUR ---
BLOOD AND CULTURES COLLECTED AND SENT TO LAB
[2022-02-01 21:33] LABS: BASOPHILS % (AUTO) 0.2 % (0.0-2.0); HEMATOCRIT 30 % (33-45); HEMOGLOBIN 9.1 g/dL (11.5-14.8); LYMPHOCYTES # (AUTO) 0.7 K/uL (0.8-4.8); LYMPHOCYTES % (AUTO) 9.6 % (20.0-44.0); MEAN CORPUSCULAR HGB CONC 31 g/dl (31.0-36.0); MEAN CORPUSCULAR VOLUME 74 fL (82-100); MONOCYTES # (AUTO) 0.2 K/uL (0.1-1.30); MONOCYTES % (AUTO) 3.4 % (2.0-12.0); NEUTROPHILS # (AUTO) 6.2 K/uL (1.8-8.9); NEUTROPHILS % (AUTO) 86.8 % (43.0-81.0); PLATELET COUNT (AUTO) 339 K/uL (150-450); RED BLOOD CELL COUNT(AUTO) 4.02 MIL/uL (4.0-5.2); WHITE BLOOD COUNT (AUTO) 7.2 K/uL (4.3-11.0)
[2022-02-01] MEDS ORDERED: VANCOMYCIN 1 GM VIAL ONE (21:45)
[2022-02-01 21:58] LABS: ALBUMIN 2.5 g/dL (3.4-5.0); BILIRUBIN,DIRECT 0.1 mg/dL (0.0-0.2); BILIRUBIN,TOTAL 0.2 mg/dL (0.2-1.0); CALCIUM, SERUM 8.3 mg/dL (8.5-10.1); CREATININE 0.8 mg/dL (0.6-1.3); POTASSIUM 4.2 mmol/L (3.5-5.1); TOTAL PROTEIN, SERUM 5.7 g/dL (6.4-8.2)
[2022-02-01] MEDS ORDERED: VANCOMYCIN 1 GM in IV D5W 250 ML IV ONE (22:00)
[2022-02-01] MEDS ORDERED: IV NS 0.9% 1,000 ML BAG IV ONE (22:30)
--- NOTE | 2022-02-01 22:49 | NUR ---
called Dr. Arana and left a message, awaiting for MD to call back.
[2022-02-01] MEDS ORDERED: ONDANSETRON HCL/PF 4 MG/2 ML VIAL IVP PRN (23:00)
[2022-02-01] MEDS ORDERED: LORAZEPAM 1 MG TABLET PO PRN (23:00)
--- NOTE | 2022-02-01 23:17 | NUR ---
admitting MD at bedside for eval.
--- NOTE | 2022-02-02 00:10 | NUR ---
Jeffrey umana in [facility] - 02/02/22 at 0011 by CELESTE [phone]
--- NOTE | 2022-02-02 00:11 | NUR ---
REPORT GIVEN TO THIAGO ROSE
[2022-02-02] MEDS ORDERED: CEFEPIME 2 GM in IV D5W 100 ML IV ONE (01:00)
--- NOTE | 2022-02-02 01:00 | NUR ---
ALEJO RECEIVED FROM ER 66 Y/O FEMALE WITH CC OFINFECTED WOUNDS BOTHE LEFT AND RIGHT HANDS, STATED UNABLE TO TOLERATE DEBRIDEMENT AT FACILITY AND WANTED SURGEON TO EVAL HER WOUNDS AND TREAMENT UNDER GEN ANESTHESIA. PATIENT STATED. REFUSED WOUNDS TO BE TOUCHED A. STATED TOO MUCH PAIN AND STATED SHE HAS OCD. ALLOWED LEFT UNDERBREAST WOUND DRESSING TO TAKE PHOTO AND DRESSING CHANGES.STATED HAS BEEN HERE BEFORE AND AWARE OF FACILITY SURROUNDINGS. CALL LIGHT WITHIN REACHED, SAFETY PRECAUTIONS EMPHASIZED WELL UNDERSTOOD.CLOSELY WATCHED.
--- NOTE | 2022-02-02 01:10 | NUR ---
wheeled patient via gurney accompanied by RN in no distress. RN assigned at bedside to assume care.
[2022-02-02] MEDS: MORPHINE SULFATE INJ 2 MG/ML DISP.SYRIN IV PRN ×4 (01:43→18:07)
[2022-02-02] MEDS: ENOXAPARIN SODIUM 40 MG/0.4 ML DISP.SYRIN SQ SCH ×2 (01:44→22:00)
[2022-02-02] MEDS ORDERED: CEFEPIME 1 GM VIAL ONE (01:55)
[2022-02-02 01:59] LABS: THYROID STIMULATING HORMONE 0.797 uIU/mL (0.358-3.74)
[2022-02-02 02:00] VITALS: BP 133/55
[2022-02-02 02:01] LABS: C-REACTIVE PROTEIN < 0.0 mg/dL (0.0-0.9)
[2022-02-02 06:13] LABS: BAND % (MANUAL) 4 % (0.0-5.0)
[2022-02-02 06:14] LABS: LYMPHOCYTES % (MANUAL) 10 % (16-48); MONOCYTES % (MANUAL) 3 % (0-11.0); NEUTROPHILS % (MANUAL) 83 (42-76)
--- NOTE | 2022-02-02 06:57 | NUR ---
MSRN ASLEEP, CONTINUED MONITORING.
--- NOTE | 2022-02-02 07:30 | NUR ---
RN MS NOTES PT IN BED, AWAKE, ALERT AND ORIENTED, WITH COMPLAINT OF LEFT HAND PAIN, NOT IN DISTRESS, CALL LIGHT WTHIN REACH, ASSISTED WITH NEEDS.
[2022-02-02 08:00] VITALS: BP 138/66
[2022-02-02] MEDS: LEVOTHYROXINE SODIUM 50 MCG TABLET PO SCH (08:18)
[2022-02-02] MEDS: PANTOPRAZOLE 40 MG TABLET.DR PO SCH (08:18)
[2022-02-02] MEDS ORDERED: NEOM1OIN15 TP (08:41)
[2022-02-02] MEDS ORDERED: CLOT15CR27 TP (08:41)
[2022-02-02] MEDS ORDERED: PANT40TA2 PO (08:41)
[2022-02-02] MEDS ORDERED: KETO15CR2 TP (08:41)
[2022-02-02] MEDS ORDERED: MULT-447 PO (08:41)
[2022-02-02] MEDS ORDERED: MOME15OI2 TP (08:41)
[2022-02-02] MEDS ORDERED: PRED20TA PO (08:41)
[2022-02-02] MEDS ORDERED: HALO15CR2 TP (08:41)
[2022-02-02] MEDS ORDERED: ACET-2605 PO (08:41)
[2022-02-02] MEDS ORDERED: AMIN30LI2 PO (08:41)
[2022-02-02 08:43] LABS: BASOPHILS % (AUTO) 0.1 % (0.0-2.0); EOSINOPHILS % (AUTO) 0.5 % (0.0-6.0); HEMATOCRIT 32 % (33-45); HEMOGLOBIN 9.7 g/dL (11.5-14.8); LYMPHOCYTES # (AUTO) 1.6 K/uL (0.8-4.8); LYMPHOCYTES % (AUTO) 20.6 % (20.0-44.0); MEAN CORPUSCULAR HGB CONC 30 g/dl (31.0-36.0); MEAN CORPUSCULAR VOLUME 75 fL (82-100); MONOCYTES # (AUTO) 0.7 K/uL (0.1-1.30); MONOCYTES % (AUTO) 8.5 % (2.0-12.0); NEUTROPHILS # (AUTO) 5.5 K/uL (1.8-8.9); NEUTROPHILS % (AUTO) 70.3 % (43.0-81.0); PLATELET COUNT (AUTO) 343 K/uL (150-450); RED BLOOD CELL COUNT(AUTO) 4.27 MIL/uL (4.0-5.2); WHITE BLOOD COUNT (AUTO) 7.8 K/uL (4.3-11.0)
[2022-02-02 09:00] LABS: ALBUMIN 2.4 g/dL (3.4-5.0); BILIRUBIN,TOTAL 0.2 mg/dL (0.2-1.0); CREATININE 0.7 mg/dL (0.6-1.3); PHOSPHORUS 4.3 mg/dL (2.5-4.9); POTASSIUM 3.7 mmol/L (3.5-5.1); TOTAL PROTEIN, SERUM 5.5 g/dL (6.4-8.2)
[2022-02-02] MEDS: ARIPIPRAZOLE 5 MG TABLET PO SCH ×2 (09:00→10:05)
[2022-02-02] MEDS: CYANOCOBALAMIN 500 MCG TABLET PO SCH (10:05)
[2022-02-02] MEDS: CHOLECALCIFEROL 1,000 UNIT TABLET (VIT D3) PO SCH (10:05)
[2022-02-02] MEDS: ASPIRIN EC 81 MG TABLET.DR PO SCH (10:05)
[2022-02-02] MEDS: SERTRALINE HCL 50 MG TABLET PO SCH (10:05)
--- NOTE | 2022-02-02 10:20 | NUR ---
WOUND CARE CONSULT: PT PRESENTS WITH BILATERAL HAND CRUSTED WOUNDS AND LEFT ABDOMINAL AREA WITH SMALL AMOUNT OF BRYAN DRAINAGE, PRESENT ON ADMISSION. PT EXAMINED BY [employer]IC [employer] P.A. DEFER TO SURGICAL TEAM FOR WOUND TREATMENT PLAN. PT REFUSED TO TURN FOR FULL ASSESSMENT OF BACK AND BUTTOCKS. PT IS AMBULATORY. WILL SEE PRN.
[2022-02-02] MEDS: VANCOMYCIN 1 GM in IV D5W 250 ML IV SCH ×2 (10:47→21:58)
[2022-02-02] MEDS: ACETAMINOPHEN 325 MG TABLET PO PRN (10:49)
[2022-02-02] MEDS: HYDROCODONE/APAP 10/325MG TABLET PO PRN ×2 (11:33→22:06)
[2022-02-02] MEDS: BETAMETHASONE DIP 0.05% CREAM 15 GM TUBE TP SCH ×3 (13:47→21:00)
[2022-02-02] MEDS: NYSTATIN OINT 100000 UNIT/G 15 GM TUBE TP SCH ×3 (13:47→17:02)
[2022-02-02] MEDS: CEFEPIME 2 GM in IV D5W 100 ML IV SCH (14:09)
[2022-02-02 16:00] VITALS: BP 103/52
[2022-02-02] MEDS: BACI/NEOM/POLY B OINT PKT 1 UDPKT PACKET TP SCH (18:58)
[2022-02-02] MEDS: THERAHONEY GEL 1.5 OZ TUBE TP SCH (18:58)
--- NOTE | 2022-02-02 19:00 | NUR ---
RN MS NOTES PT IN BED, AWAKE, ALERT AND ORIENTED, PAIN MEDICATION GIVEN ORDERED, VERBALIZED RELIEF, WOUND TREATMENTS AND DRESSING CHANGE DONE TO WOUNDS ORDERED, ATE DINNER, TOLERATED WELL, NEEDS ATTENDED.
[2022-02-02 20:00] VITALS: BP 113/63
--- NOTE | 2022-02-02 20:10 | NUR ---
MS/TELE/RN RECEIVED PATIENT LYING IN BED AWAKE, ALERT, ORIENTED, NO C/O PAIN, NO DISTRESS NOTED, CALL LIGHT IN REACH, FALL PRECAUTIONS PER PROTOCOL IMPLEMENTED, WILL MONITOR.
[2022-02-03] MEDS: MORPHINE SULFATE INJ 2 MG/ML DISP.SYRIN IV PRN ×5 (01:01→21:18)
[2022-02-03] MEDS: CEFEPIME 2 GM in IV D5W 100 ML IV SCH ×2 (02:25→13:42)
[2022-02-03] MEDS: HYDROCODONE/APAP 10/325MG TABLET PO PRN ×2 (03:38→18:51)
[2022-02-03 05:09] LABS: BASOPHILS % (AUTO) 0.4 % (0.0-2.0); HEMATOCRIT 28 % (33-45); HEMOGLOBIN 8.3 g/dL (11.5-14.8); LYMPHOCYTES # (AUTO) 1.7 K/uL (0.8-4.8); MEAN CORPUSCULAR HGB CONC 30 g/dl (31.0-36.0); MEAN CORPUSCULAR VOLUME 74 fL (82-100); MONOCYTES # (AUTO) 0.8 K/uL (0.1-1.30); MONOCYTES % (AUTO) 10.3 % (2.0-12.0); NEUTROPHILS # (AUTO) 5.1 K/uL (1.8-8.9); NEUTROPHILS % (AUTO) 65.3 % (43.0-81.0); PLATELET COUNT (AUTO) 272 K/uL (150-450); RED BLOOD CELL COUNT(AUTO) 3.73 MIL/uL (4.0-5.2); WHITE BLOOD COUNT (AUTO) 7.9 K/uL (4.3-11.0)
[2022-02-03 05:34] LABS: CALCIUM, SERUM 7.8 mg/dL (8.5-10.1); CREATININE 0.6 mg/dL (0.6-1.3); MAGNESIUM 2.2 mg/dL (1.8-2.4); PHOSPHORUS 4.5 mg/dL (2.5-4.9); POTASSIUM 3.8 mmol/L (3.5-5.1)
--- NOTE | 2022-02-03 06:21 | NUR ---
MS/TELE/RN PATIENT IS SLEEPING, NO SIGNS OF DISTRESS NOTED, CALL LIGHT IN REACH, ALL NEEDS ATTENDED AT THIS TIME, WILL CONTINUE TO MONITOR.
--- NOTE | 2022-02-03 07:30 | NUR ---
RN MS NOTES PT IN BED, AWAKE, ALERT AND ORIENTED, NO COMPLAINT AT THIS TIME, RESPIRATIONS NORMAL LIGHT WITHIN REACH, ASSISTED WITH BREAKFAST.
[2022-02-03 08:00] VITALS: BP 95/62
[2022-02-03] MEDS: ASPIRIN EC 81 MG TABLET.DR PO SCH (08:22)
[2022-02-03] MEDS: CHOLECALCIFEROL 1,000 UNIT TABLET (VIT D3) PO SCH (08:22)
[2022-02-03] MEDS: SERTRALINE HCL 50 MG TABLET PO SCH (08:22)
[2022-02-03] MEDS: LEVOTHYROXINE SODIUM 50 MCG TABLET PO SCH (08:22)
[2022-02-03] MEDS: PANTOPRAZOLE 40 MG TABLET.DR PO SCH (08:22)
[2022-02-03] MEDS: CYANOCOBALAMIN 500 MCG TABLET PO SCH (08:22)
[2022-02-03] MEDS: ARIPIPRAZOLE 5 MG TABLET PO SCH (08:27)
[2022-02-03] MEDS ORDERED: IV NS 0.9% 500 ML IV ONE (09:45)
[2022-02-03] MEDS: BETAMETHASONE DIP 0.05% CREAM 15 GM TUBE TP SCH ×2 (10:00→21:45)
[2022-02-03] MEDS: BACI/NEOM/POLY B OINT PKT 1 UDPKT PACKET TP SCH ×2 (10:00→16:50)
[2022-02-03] MEDS: NYSTATIN OINT 100000 UNIT/G 15 GM TUBE TP SCH ×3 (10:00→16:50)
[2022-02-03] MEDS: THERAHONEY GEL 1.5 OZ TUBE TP SCH (10:00)
[2022-02-03] MEDS: ENSURE ENLIVE 237 ML LIQUID (VANILLA) PO SCH (10:01)
[2022-02-03] MEDS: VANCOMYCIN 1 GM in IV D5W 250 ML IV SCH (10:07)
[2022-02-03 15:29] VITALS: BP 120/60
--- NOTE | 2022-02-03 18:17 | NUR ---
RN MS NOTES PT IN BED, AWAKE, ALERT AND ORIENTED, PAIN MEDS GIVEN ORDERED, VERBALIZED RELIEF, NOTED IV LINE AT RIGHT WRIST LEAKING, REINSERTED NEW IV LINE AT RIGHT WRIST, TOLERATED WELL, ASSISTED WITH NEEDS, WOUND TREATMENTS AND DRESSING CHANGE DONE, TOLERATED WELL, ALL NEEDS ATTENDED.
[2022-02-03 20:00] VITALS: BP 139/67
[2022-02-03] MEDS ORDERED: LIDOCAINE 1%-EPI 1:100,000 20 ML VIAL TP ONE (20:30)
[2022-02-03] MEDS ORDERED: SILVER NITRATE APPLICATOR 1 EA BOX TP SCH (20:30)
[2022-02-03] MEDS: ENOXAPARIN SODIUM 40 MG/0.4 ML DISP.SYRIN SQ SCH (21:00)
--- NOTE | 2022-02-03 21:30 | NUR ---
MS RN NOTE NEW ORDER FOR LEFT HAND BIOPSY, NO TIME AND DATE BUT POSSIBLY TOMORROW. NOTIFIED OSD CLERK MD WHETHER LOVENOX SQ SHOULD STILL BE GIVEN. PER MD HOLD LOVENOX. OBTAINED CONSENT FORM FOR LEFT HAND BIOPSY, HOWEVER PATIENT ONLY WANTS TO DO IT IF THEY PUT HER UNDER ANESTHESIA. EXPLAINED THEY NORMALLY NUMB THE AREA WITH LIDOCAINE, PT STATED LAST TIME THEY ATTEMPTED THAT IT WAS TOO PAINFUL. PATIENT STATED SHE DOESN'T WANT TO SIGN CONSENT FORM UNTIL SHE SPEAKS TO MD ABOUT IT
[2022-02-03] MEDS: VANCOMYCIN HCL 0.75 GM in IV D5W 250 ML IV SCH (22:06)
[2022-02-04] MEDS: HYDROCODONE/APAP 10/325MG TABLET PO PRN ×3 (00:59→13:30)
[2022-02-04] MEDS: CEFEPIME 2 GM in IV D5W 100 ML IV SCH ×2 (02:22→13:44)
[2022-02-04 04:27] VITALS: BP 119/65
[2022-02-04] MEDS: MORPHINE SULFATE INJ 2 MG/ML DISP.SYRIN IV PRN ×4 (04:29→19:49)
--- NOTE | 2022-02-04 06:40 | NUR ---
MS RN CLOSING NOTE PATIENT AWAKE IN BED, ALERT/ORIENTED X 4, PT ABLE TO MAKE NEEDS KNOWN. PATIENT STABLE ON RA, NO S/S OF DISTRESS OR SOB NOTED, BREATHING EVEN AND UNLABORED. LEFT HAND DRESSING C/D/I. LEFT WRIST IV ACCESS INTACT AND SALINE LOCKED. MEDICATIONS GIVEN ORDERED, PT NEEDS MET THROUGHOUT SHIFT. PATIENT STATED SHE WOULD LIKE TO SPEAK TO PAIN SPECIALIST REGARDING LEFT HAND PAIN. PATIENT ALSO STATED SHE WANTS TO BE PUT UNDER ANESTHESIA FOR THE LEFT HAND BIOPSY, STATED LAST TIME THEY ATTEMPTED WITH LOCALIZED PAIN MEDICATION, THEY WERE UNABLE TO D/T THE PAIN, PT STATED SHE DOES NOT WANT TO SIGN CONSENT UNTIL SHE SPEAKS TO MD REGARDING THIS. SAFETY MEASURES IN PLACE: CALL LIGHT WITHIN REACH, SIDE RAILS UP X 2, BED LOCKED IN LOWEST POSITION, BED ALARM ON. WILL ENDORSE TO DAY SHIFT NURSE FOR CONTINUITY OF CARE
[2022-02-04 06:53] LABS: BASOPHILS % (AUTO) 0.3 % (0.0-2.0); EOSINOPHILS % (AUTO) 1.8 % (0.0-6.0); HEMATOCRIT 28 % (33-45); HEMOGLOBIN 8.5 g/dL (11.5-14.8); LYMPHOCYTES # (AUTO) 1.7 K/uL (0.8-4.8); LYMPHOCYTES % (AUTO) 22.7 % (20.0-44.0); MEAN CORPUSCULAR HGB CONC 31 g/dl (31.0-36.0); MEAN CORPUSCULAR VOLUME 74 fL (82-100); MONOCYTES # (AUTO) 0.8 K/uL (0.1-1.30); MONOCYTES % (AUTO) 10.1 % (2.0-12.0); NEUTROPHILS # (AUTO) 4.9 K/uL (1.8-8.9); NEUTROPHILS % (AUTO) 65.1 % (43.0-81.0); PLATELET COUNT (AUTO) 245 K/uL (150-450); RED BLOOD CELL COUNT(AUTO) 3.76 MIL/uL (4.0-5.2); WHITE BLOOD COUNT (AUTO) 7.6 K/uL (4.3-11.0)
[2022-02-04 07:14] LABS: CALCIUM, SERUM 7.8 mg/dL (8.5-10.1); CREATININE 0.5 mg/dL (0.6-1.3); MAGNESIUM 2.2 mg/dL (1.8-2.4); PHOSPHORUS 4.8 mg/dL (2.5-4.9); POTASSIUM 4.1 mmol/L (3.5-5.1)
--- NOTE | 2022-02-04 07:40 | NUR ---
RN OPENING NOTE PATIENT AWAKE IN BED RESTING. A/O X4. NO S/S OF PAIN NOTED AT THIS TIME. ON ROOM AIR, NO DISTRESS OR SHORTNESS OF BREATH NOTED. IV ACCESS L WRIST #22G INTACT, PATENT AND FLUSHING WELL. FALL AND SAFETY MEASURES IN PLACE, BED ALARM ON, BED IN LOW AND LOCK POSITION, CALL LIGHT AND TABLE WITHIN EASY REACH, SIDE RAILS UP X2. WILL CONTINUE TO MONITOR.
[2022-02-04 08:05] VITALS: BP 112/62
[2022-02-04] MEDS: CHOLECALCIFEROL 1,000 UNIT TABLET (VIT D3) PO SCH (08:47)
[2022-02-04] MEDS: PANTOPRAZOLE 40 MG TABLET.DR PO SCH (08:47)
[2022-02-04] MEDS: SERTRALINE HCL 50 MG TABLET PO SCH (08:47)
[2022-02-04] MEDS: CYANOCOBALAMIN 500 MCG TABLET PO SCH (08:47)
[2022-02-04] MEDS: LEVOTHYROXINE SODIUM 50 MCG TABLET PO SCH (08:47)
[2022-02-04] MEDS: NYSTATIN OINT 100000 UNIT/G 15 GM TUBE TP SCH ×3 (08:48→17:56)
[2022-02-04] MEDS: BACI/NEOM/POLY B OINT PKT 1 UDPKT PACKET TP SCH ×2 (08:49→17:56)
[2022-02-04] MEDS: BETAMETHASONE DIP 0.05% CREAM 15 GM TUBE TP SCH ×2 (08:49→21:20)
[2022-02-04] MEDS: THERAHONEY GEL 1.5 OZ TUBE TP SCH (08:49)
[2022-02-04] MEDS: ARIPIPRAZOLE 5 MG TABLET PO SCH (08:50)
[2022-02-04] MEDS: ENSURE ENLIVE 237 ML LIQUID (VANILLA) PO SCH (08:51)
[2022-02-04] MEDS: ASPIRIN EC 81 MG TABLET.DR PO SCH (08:51)
[2022-02-04] MEDS: VANCOMYCIN HCL 0.75 GM in IV D5W 250 ML IV SCH ×2 (10:05→21:20)
[2022-02-04 16:09] VITALS: BP 112/52
--- NOTE | 2022-02-04 18:51 | NUR ---
RN CLOSING NOTE PATIENT AWAKE IN BED RESTING. A/O X4. NO S/S OF PAIN NOTED AT THIS TIME, PAIN MEDICATION WAS GIVEN DURING THE SHIFT. ON ROOM AIR, NO DISTRESS OR SHORTNESS OF BREATH NOTED. IV ACCESS L WRIST #22G INTACT, PATENT AND FLUSHING WELL. SCHEDULE MEDICATIONS ADMINISTERED. WOUND CARE IMPLEMENTED. PATIENT HAD A LEFT HAND BIOPSY TODAY, TOLERATED PROCEDURE WELL. FALL AND SAFETY MEASURES IN PLACE, BED ALARM ON, BED IN LOW AND LOCK POSITION, CALL LIGHT AND TABLE WITHIN EASY REACH, SIDE RAILS UP X2. WILL ENDORSE TO DEPUTY DIRECTOR OF PUBLIC WORKS.
--- NOTE | 2022-02-04 19:55 | NUR ---
RN OPENING NOTE PATIENT IS AWAKE IN BED. EXTREMELY AGITATED. SHE IS SCREAMING THAT THIS NURSE HAS NEGLECTED HER FOR 1+ HRS, BUT THIS NURSE HADN'T EVEN BEEN ON FOR THAT LONG YET. PATIENT BELIEVES SHE IS NEGLECTED BY HOSPITAL STAFF. PATIENT WAS GIVEN PAIN MED; ALL PAIN NEEDS ADDRESSED. PATIENT IS A/0X4. NO S/S OF DISTRESS, BREATHING WITHOUT DIFFICULTY ON ROOM AIR. L-WRIST #22 SL INTACT AND PATENT. SAFETY MEASURES IN PLACE: BED LOCKED AND AT LOWEST POSITION, RAILS UP X2, CALL MCINTOSH WITHIN REACH. WILL CONTINUE TO MONITOR PATIENT.
[2022-02-04 20:00] VITALS: BP 118/54
[2022-02-04] MEDS: ENOXAPARIN SODIUM 40 MG/0.4 ML DISP.SYRIN SQ SCH (21:21)
[2022-02-05] MEDS: MORPHINE SULFATE INJ 2 MG/ML DISP.SYRIN IV PRN ×4 (00:15→11:25)
--- NOTE | 2022-02-05 00:15 | NUR ---
RN NOTE PATIENT HAD REMOVED HER IV ACCESS. ALL ITEMS ACCOUNTED FOR - INCLUDING CATH. PRESSURE DRESSING APPLIED. NEW IV ACCESS INSERTED IN OSCAR #22 SUCCESSFULLY. PATIENT IS STABLE, WILL CONTINUE TO MONITOR PATIENT.
[2022-02-05] MEDS: CEFEPIME 2 GM in IV D5W 100 ML IV SCH (02:13)
[2022-02-05] MEDS: HYDROCODONE/APAP 10/325MG TABLET PO PRN ×2 (06:42→13:19)
--- NOTE | 2022-02-05 06:52 | NUR ---
RN CLOSING NOTE PATIENT AWAKE IN BED. A/OX4. NO S/S OF DISTRESS, BREATHING WITHOUT DIFFICULTY ON ROOM AIR. OSCAR #22 SL INTACT AND PATENT. SAFETY MEASURES IN PLACE: BED LOCKED AND AT LOWEST POSITION, RAILS UP X2, CALL MCINTOSH WITHIN REACH. WILL ENDORSE TO NEXT SHIFT FOR JIMI.
[2022-02-05 07:22] LABS: CALCIUM, SERUM 8.1 mg/dL (8.5-10.1); CREATININE 0.5 mg/dL (0.6-1.3); POTASSIUM 4.3 mmol/L (3.5-5.1)
--- NOTE | 2022-02-05 07:30 | NUR ---
RN OPENING NOTE RECEIVED PATIENT IN BED, AWAKE, A/O X4, VERBALLY RESPONSIVE. NO SIGNS OF ACUTE DISTRESS NOTED. ON ROOM AIR, NO SOB NOTED, BREATHING EVEN AND UNLABORED. NOTED WITH IV ACCESS ON RIGHT UPPER ARM #22G, SALINE LOCKED. SAFETY MEASURE IN PLACE. BED IN LOWEST AND LOCKED POSITION, SIDE RAILS UP X2, CALL LIGHT PLACED WITHIN EASY REACH. WILL CONTINUE TO MONITOR PATIENT.
[2022-02-05] MEDS: ARIPIPRAZOLE 5 MG TABLET PO SCH (08:23)
[2022-02-05] MEDS: PANTOPRAZOLE 40 MG TABLET.DR PO SCH (08:23)
[2022-02-05] MEDS: LEVOTHYROXINE SODIUM 50 MCG TABLET PO SCH (08:23)
[2022-02-05] MEDS: CYANOCOBALAMIN 500 MCG TABLET PO SCH (08:23)
[2022-02-05] MEDS: ENSURE ENLIVE 237 ML LIQUID (VANILLA) PO SCH (08:23)
[2022-02-05] MEDS: CHOLECALCIFEROL 1,000 UNIT TABLET (VIT D3) PO SCH (08:23)
[2022-02-05] MEDS: ASPIRIN EC 81 MG TABLET.DR PO SCH (08:23)
[2022-02-05] MEDS: SERTRALINE HCL 50 MG TABLET PO SCH (08:23)
[2022-02-05] MEDS: BETAMETHASONE DIP 0.05% CREAM 15 GM TUBE TP SCH (08:28)
[2022-02-05] MEDS: NYSTATIN OINT 100000 UNIT/G 15 GM TUBE TP SCH (08:28)
[2022-02-05] MEDS: THERAHONEY GEL 1.5 OZ TUBE TP SCH (08:28)
[2022-02-05 08:29] VITALS: BP 120/64
[2022-02-05] MEDS: BACI/NEOM/POLY B OINT PKT 1 UDPKT PACKET TP SCH (08:30)
[2022-02-05] MEDS ORDERED: POLY B TP (09:49)
[2022-02-05] MEDS ORDERED: [UNRECOGNIZED DRUG - OTHER] TP (09:49)
[2022-02-05] MEDS ORDERED: DOXY-226 PO (09:49)
[2022-02-05] MEDS: VANCOMYCIN HCL 0.75 GM in IV D5W 250 ML IV SCH (10:19)
[2022-02-05] MEDS: ACETAMINOPHEN 325 MG TABLET PO PRN (10:30)
--- NOTE | 2022-02-05 13:43 | NUR ---
METAL PICKLING EQUIPMENT OPERATOR NOTE PATIENT DISCHARGED TO THE CARE CENTER ON IN STABLE CONDITION. PATIENT REMAINS AWAKE, A/O X4, VERBALLY RESPONSIVE. NO SIGNS OF ACUTE DISTRESS NOTED. NORCO GIVEN PRIOR TO DISCHARGE. PHOTOS OF SKIN ISSUES TAKEN, PLACED IN CHART. WOUND TREATMENT DONE. IV ACCESS REMOVED, NO BLEEDING NOTED. ALL BELONGINGS ACCOUNTED FOR. FORM SIGNED BY PATIENT. HEALTH TEACHINGS AND DISCHARGE INSTRUCTIONS PROVIDED WITH VERBALIZATION OF UNDERSTANDING. REPORT GIVEN TO THIAGO LANDRY FROM [facility]. EXITCARE FOLDER GIVEN TO AMBULANCE CREW, HANDOFF REPORT GIVEN. PATIENT PICKED UP VIA [facility] @1340. CN AWARE OF DISCHARGE.
== END 2022-02-05 13:45 | DRG 603 ==
LOC: ER 20:13 → MED 02-02 00:12
PROVIDERS: ADMIT Internal Medicine; ATTEND Registered Nurse
PROC: 0JBK0ZX Excision of Left Hand Subcutaneous Tissue and Fascia, Open Approach, Diagnostic (ICD-10-PCS; principal; 2022-02-04)
DX: L03.114 Cellulitis of left upper limb (principal); E44.0 Moderate protein-calorie malnutrition; D50.9 Iron deficiency anemia, unspecified; Z68.22 Body mass index [BMI] 22.0-22.9, adult; D69.6 Thrombocytopenia, unspecified; E03.9 Hypothyroidism, unspecified; E88.09 Other disorders of plasma-protein metabolism, not elsewhere classified; F20.9 Schizophrenia, unspecified; F42.9 Obsessive-compulsive disorder, unspecified; Z88.5 Allergy status to narcotic agent; Z79.51 Long term (current) use of inhaled steroids; Z79.82 Long term (current) use of aspirin; Z79.899 Other long term (current) drug therapy; I25.2 Old myocardial infarction; J44.9 Chronic obstructive pulmonary disease, unspecified; F29 Unspecified psychosis not due to a substance or known physiological condition; Z20.822 Contact with and (suspected) exposure to COVID-19; F32.A Depression, unspecified; K21.9 Gastro-esophageal reflux disease without esophagitis; L85.3 Xerosis cutis; X58.XXXA Exposure to other specified factors, initial encounter; Y92.9 Unspecified place or not applicable; S60.511A Abrasion of right hand, initial encounter
CPT/HCPCS: 31720; 36415; 73130-TC; 80048-TC; 80053-TC; 80076-TC; 80202-TC; 83735-TC; 84100-TC; 84439-TC; 84443-TC; 84481; 85025-TC; 85652-TC; 85730-TC; 86140-TC; 87040-TC; 87081-TC; 88305-TC; 88312-TC; 94003-TC; 94760-TC; A6403; C9803; G0378; J0692; J1650; J2270; J3370; J3490; J7040; J7050; J7060

== ENCOUNTER 2022-02-24 14:59 | Inpatient (IN) | payer MEDICARE, OTHER ==
[~2022-02-24] VITALS: Ht 152.4 cm; Wt 62.6 kg
[~2022-02-24 14:59] MED LIST changes: +ACET-2605 PO; -ALBU18HF2 INH; +AMIN30LI2 PO; -CLIN60LO2 TP; +CLOT15CR27 TP; +DOXY-226 PO; -ESOM40CA PO; -FLUC200T8 PO; -GEL100GE TD; +HALO15CR2 TP; -HYDR-3980 PO; -HYDR-4303 PO; +KETO15CR2 TP; +MOME15OI2 TP; +MULT-447 PO; +NEOM1OIN15 TP; +PANT40TA2 PO; +POLY B TP; +PRED20TA PO; +[UNRECOGNIZED DRUG - OTHER] TP
--- NOTE | 2022-02-24 16:05 | NUR ---
BIB HALF-WAY, C/O LEFT RING FINGER, SWOLLEN RED IRRITATED, & AB WOUND EVALUATION
--- NOTE | 2022-02-24 16:07 | NUR ---
LEFT HAND X-RAY PERFORMED
--- NOTE | 2022-02-24 16:07 | NUR ---
LAB AT BEDSIDE TO DRAW BLOOD FOR LABS / ORDERS
--- NOTE | 2022-02-24 16:08 | NUR ---
IV RIGHT UPPER ARM 22 GAUGE
[2022-02-24 16:17] LABS: BASOPHILS % (AUTO) 0.6 % (0.0-2.0); EOSINOPHILS % (AUTO) 1.4 % (0.0-6.0); HEMATOCRIT 27 % (33-45); HEMOGLOBIN 8.4 g/dL (11.5-14.8); LYMPHOCYTES # (AUTO) 1.6 K/uL (0.8-4.8); MEAN CORPUSCULAR HGB CONC 31 g/dl (31.0-36.0); MEAN CORPUSCULAR VOLUME 76 fL (82-100); MONOCYTES # (AUTO) 0.5 K/uL (0.1-1.30); MONOCYTES % (AUTO) 7.6 % (2.0-12.0); NEUTROPHILS # (AUTO) 4.2 K/uL (1.8-8.9); NEUTROPHILS % (AUTO) 65.4 % (43.0-81.0); PLATELET COUNT (AUTO) 513 K/uL (150-450); RED BLOOD CELL COUNT(AUTO) 3.62 MIL/uL (4.0-5.2); WHITE BLOOD COUNT (AUTO) 6.4 K/uL (4.3-11.0)
[2022-02-24 16:36] LABS: ALBUMIN 2.3 g/dL (3.4-5.0); BILIRUBIN,DIRECT 0.1 mg/dL (0.0-0.2); BILIRUBIN,TOTAL 0.2 mg/dL (0.2-1.0); CALCIUM, SERUM 8.2 mg/dL (8.5-10.1); CREATININE 0.5 mg/dL (0.6-1.3); POTASSIUM 4.5 mmol/L (3.5-5.1); TOTAL PROTEIN, SERUM 5.7 g/dL (6.4-8.2)
[2022-02-24] MEDS ORDERED: NYST15CR TP (16:41)
[2022-02-24] MEDS ORDERED: ASPI-1169 PO (16:41)
[2022-02-24] MEDS ORDERED: QUET25TA PO (16:41)
--- NOTE | 2022-02-24 16:52 | NUR ---
URINE SPECIMEN COLLECTED, SENT TO LAB, PT MADE COMFORTABLE , BED LOW TO FLOOR
[2022-02-24] MEDS ORDERED: VANCOMYCIN 1 GM in IV D5W 250 ML IV ONE (17:00)
--- NOTE | 2022-02-24 17:12 | NUR ---
[facility] PAGED
--- NOTE | 2022-02-24 18:06 | NUR ---
PT ATE DINNER ABLE TO FEED SELF, NO ASPIRATION NOTED
[2022-02-24 18:53] LABS: LYMPHOCYTES % (MANUAL) 19 % (16-48); MONOCYTES % (MANUAL) 4 % (0-11.0); NEUTROPHILS % (MANUAL) 77 (42-76)
[2022-02-24] MEDS ORDERED: ONDANSETRON HCL/PF 4 MG/2 ML VIAL IVP PRN (19:00)
[2022-02-24] MEDS ORDERED: Z GUARD REMEDY 4 OZ OINT TP PRN (19:00)
[2022-02-24] MEDS ORDERED: ACETAMINOPHEN ES 500 MG TABLET PO PRN (19:00)
[2022-02-24] MEDS ORDERED: MAGNESIUM HYDROXIDE 30 ML UDC PO PRN ×2 (19:00)
[2022-02-24] MEDS ORDERED: BISACODYL SUPP (10 MG) 10 MG/SUPP.RECT SUPP.RECT RC PRN (19:00)
[2022-02-24] MEDS ORDERED: ACETAMINOPHEN 325 MG TABLET PO PRN ×2 (19:00)
[2022-02-24] MEDS ORDERED: MAG HYDROX/AL HYDROX/SIMETH 30 ML UDC PO PRN (19:00)
[2022-02-24] MEDS ORDERED: oxyCODONE/APAP (5/325 MG) 1 UDTAB TABLET PO PRN (19:00)
[2022-02-24] MEDS ORDERED: ZOLPIDEM TARTRATE 5 MG TABLET PO PRN (19:00)
[2022-02-24] MEDS ORDERED: LORAZEPAM 1 MG TABLET PO PRN (19:00)
--- NOTE | 2022-02-24 20:18 | NUR ---
PT TRANSPORTED TO ROOM 118 VIA [facility] IN STABLE CONDITION
--- NOTE | 2022-02-24 20:25 | NUR ---
2024 Admitted from ER 66 year old female via [facility] with Dx of cellulitis. Patient is awake alert and oriented x4. Stated she has "OCD". Requires max assist with ADLs. Admission care done. Skin assessment done and noted with redness and swelling on left hand. Patient with c/o pain on affected site when touched. Noted also with open wound on left upper abdomen, with moderate amount of yellowish drainage. Noted with skin redness on periwound. Cleansed area with NS and covered with gauze. Complete bed bath provided. IV site on RFA noted intact. No signs of infiltration noted. Vital signs taken and recorded. Call light placed within reach.
--- NOTE | 2022-02-24 21:30 | NUR ---
RN NOTE PRN PERCOCET GIVEN FOR 8/10 PAIN ON THE LEFT HAND TOLERATED WELL.
[2022-02-24 22:00] VITALS: BP 120/66
[2022-02-25] MEDS: PIPERACILLIN /TAZOBACTAM 4.5 G in IV D5W 50 ML IV SCH ×4 (00:15→21:33)
[2022-02-25] MEDS: IV 1/2NS 1000 ML 1,000 ML IV PRN (00:17)
[2022-02-25] MEDS ORDERED: VANCOMYCIN 1 GM VIAL ONE (00:53)
[2022-02-25] MEDS: VANCOMYCIN 1 GM in IV D5W 250 ML IV SCH ×2 (00:57→09:13)
[2022-02-25] MEDS: oxyCODONE/APAP (5/325 MG) 1 UDTAB TABLET PO PRN ×4 (01:59→20:17)
--- NOTE | 2022-02-25 06:42 | NUR ---
RN NOTE PT IS A 66 YRLD FEMALE A/O X4 AMBULATORY ABLE TO MAKE NEEDS KNOW. NO DISTRESS OR PAIN REPORTED AT THIS ITME. PT HAS IV ACCESS ON THE L HAND 22G RUNNING 1/2 NS @75 ML/HR ALL DUE MEDS GIVEN AND TOLERATED WELL. PT NOTED WILL SOME SKIN ISSUES WOUND PICTURED TAKEN PLACE DIN CHART WOUND CONSULT ORDERED. PT ON ROOM AIR TOLERATING WELL. ALTHOUGH PT IS AMBULATORY SHE REQUESTED A PURWICK AND BED ARIZA SHE PREFERS NOT TO GET UP DURING THE NIGHT. PT ORIENTED TO UNIT AND ROOM CALL LIGHT WITHIN REACH TABLE WITHIN REACH. BED IN LOW LOCKED POSITION, WILL ENDORSE CRAE TO DAY SHIFT NURSE.
--- NOTE | 2022-02-25 07:25 | NUR ---
RN OPENING NOTES: RECEIVED PT IN BED A/O X4 AMBULATORY ABLE TO MAKE NEEDS KNOW. NO DISTRESS OR PAIN REPORTED AT THIS TME. PT HAS IV ACCESS ON THE R HAND 22G RUNNING 1/2 NS @75 ML/HR ALL DUE MEDS GIVEN AND TOLERATED WELL. PT ON ROOM AIR TOLERATING WELL. PT HAS A PURWICK PER HER REQUEST .ALL SAFTEY MEASURES RENDERED,BED IN LOW AND LOCKED POSITION. CALL LIGHT WITHIN REACH TABLE WITHIN REACH. WILL MONITOR
[2022-02-25] MEDS: LEVOTHYROXINE SODIUM 50 MCG TABLET PO SCH (07:39)
[2022-02-25] MEDS: PANTOPRAZOLE 40 MG TABLET.DR PO SCH (07:39)
[2022-02-25 07:41] LABS: BASOPHILS % (AUTO) 0.6 % (0.0-2.0); EOSINOPHILS % (AUTO) 2.5 % (0.0-6.0); HEMATOCRIT 25 % (33-45); HEMOGLOBIN 7.6 g/dL (11.5-14.8); LYMPHOCYTES # (AUTO) 1.4 K/uL (0.8-4.8); LYMPHOCYTES % (AUTO) 26.1 % (20.0-44.0); MEAN CORPUSCULAR HGB CONC 31 g/dl (31.0-36.0); MEAN CORPUSCULAR VOLUME 75 fL (82-100); MONOCYTES # (AUTO) 0.6 K/uL (0.1-1.30); MONOCYTES % (AUTO) 10.8 % (2.0-12.0); NEUTROPHILS # (AUTO) 3.3 K/uL (1.8-8.9); PLATELET COUNT (AUTO) 471 K/uL (150-450); RED BLOOD CELL COUNT(AUTO) 3.32 MIL/uL (4.0-5.2); WHITE BLOOD COUNT (AUTO) 5.4 K/uL (4.3-11.0)
[2022-02-25 08:00] VITALS: BP 123/75
[2022-02-25 08:22] LABS: ALBUMIN 1.9 g/dL (3.4-5.0); BILIRUBIN,TOTAL 0.2 mg/dL (0.2-1.0); CALCIUM, SERUM 7.8 mg/dL (8.5-10.1); CREATININE 0.5 mg/dL (0.6-1.3); MAGNESIUM 2.1 mg/dL (1.8-2.4); PHOSPHORUS 3.9 mg/dL (2.5-4.9); POTASSIUM 3.6 mmol/L (3.5-5.1); TOTAL PROTEIN, SERUM 4.9 g/dL (6.4-8.2)
[2022-02-25] MEDS: ASPIRIN 81 MG TAB.CHEW PO SCH ×2 (09:00→09:14)
[2022-02-25] MEDS ORDERED: BETAMETHASONE DIP 0.05% CREAM 15 GM TUBE TP PRN (09:00)
[2022-02-25] MEDS: QUETIAPINE FUMARATE 25 MG TABLET PO SCH ×4 (09:00→17:00)
[2022-02-25] MEDS: ARIPIPRAZOLE 5 MG TABLET PO SCH ×2 (09:00→09:14)
[2022-02-25] MEDS: SERTRALINE HCL 50 MG TABLET PO SCH (09:14)
--- NOTE | 2022-02-25 09:22 | NUR ---
WOUND CARE CONSULT: PT PRESENTS WITH REDNESS AND SOME SWELLING TO LEFT HAND FINGERS WELL ABDOMINAL WOUND, PRESENT ON ADMISSION. DR NOEL ROLLE CALLED BY RN FOR GENERAL SURGERY CONSULT AND DR AYOUB CALLED FOR HAND REDNESS. RECOMMENDATIONS MADE FOR SKIN PROTECTION. DISCUSSED WITH NURSING STAFF. PURE WICK IN USE FOR URINARY INCONTINENCE. MD IN AGREEMENT WITH PLAN OF CARE.
--- NOTE | 2022-02-25 09:25 | NUR ---
RN NOTES: PT REFUSED ABILIFY, SEROQUEL AND ASPIRIN, EXPLAINED RISK AND BENEFITS STILL REFUSES
[2022-02-25 16:00] VITALS: BP 119/65
[2022-02-25 16:21] LABS: EOSINOPHILS % (MANUAL) 5 % (0-4); LYMPHOCYTES % (MANUAL) 29 % (16-48); MONOCYTES % (MANUAL) 6 % (0-11.0); NEUTROPHILS % (MANUAL) 60 (42-76)
--- NOTE | 2022-02-25 18:54 | NUR ---
RN CLOSING NOTE: PATIENT REMAINS IN ROOM IN NO SIGNS OF RESPIRATORY DISTRESS, ON ROOM AIR WELL SATURATING @ >95% SP02. SAFETY MEASURES IMPLEMENTED, BED IN LOWEST POSITION, LOCKED, SIDE RAILS UP, CALL LIGHT WITHIN REACH. ALL NEEDS AND ORDERS ADDRESSED DURING THE SHIFT. IV ACCESS MAINTAINED INTACT, SECURED AND FLUSHING WELL. ALL DUE MEDS GIVEN ORDERED & SCHEDULED ; PATIENT TOLERATED WELL.CONTINUE PUREWICK SHE DESIRE. PATIENT KEPT CLEAN AND COMFORTABLE WITHIN THE SHIFT. PATIENT ENDORSED TO INCOMING SHIFT RN WITH STABLE VITAL SIGN AND FOR CONTINUITY OF CARE.
[2022-02-25] MEDS: VANCOMYCIN 0.75 GM in IV D5W 250 ML IV SCH (20:08)
--- NOTE | 2022-02-25 20:53 | NUR ---
MS RN OPENING NOTES: RECEIVED PATIENT AWAKE IN BED, BED IN LOW POSITION CALL LIGHTS WITHIN REACH, NO COMPLAIN OF PAIN AND DISCOMFORT AT THIS TIME, ON ROOM AIR SATURATING WELL, PATIENT IS A/OX 3-4 ABLE TTO MAKE NEEDS KNOWN, IV LINE AT RIGHT HAND#22 WITH ONGOING 1/2NSS@75ML/HR INFUSING WELL, PATIENT KEPT CLEAN AND DRY ALL NEEDS MET WILL CONTINUE TO MONITOR.
[2022-02-26] VITALS: BP 129/80
[2022-02-26] MEDS: IV 1/2NS 1000 ML 1,000 ML IV PRN ×2 (00:32→16:02)
[2022-02-26] MEDS: oxyCODONE/APAP (5/325 MG) 1 UDTAB TABLET PO PRN ×4 (01:48→19:25)
[2022-02-26] MEDS: VANCOMYCIN 0.75 GM in IV D5W 250 ML IV SCH ×3 (04:12→21:23)
[2022-02-26] MEDS: PIPERACILLIN /TAZOBACTAM 4.5 G in IV D5W 50 ML IV SCH ×3 (05:26→21:27)
--- NOTE | 2022-02-26 06:53 | NUR ---
MS RN CLOSING NOTES: PATIENT SLEEP IN BED COMFORTABLY, AROUSABLE TO VERBAL STIMULI, BED IN LOW POSI POSITION CALL LIGHTS WITHIN REACH,, NO COMPLAIN OF PAIN AND DISCOMFORT AT THIS TIME, ON ROOM AIR SATURATING WELL, PATIENT IS A/OX3-4 ABLE TO MAKE NEEDS KNOWN, ON PICK WICK WITH URINE OUTPUT-1800 CC URINE OUTPUT. PATIENT KEPT CLEAN AND DRY ALL NEEDS MET ENDORSE TO INCOMING SHIFT.
[2022-02-26 07:03] LABS: CALCIUM, SERUM 8.1 mg/dL (8.5-10.1); CREATININE 0.5 mg/dL (0.6-1.3); POTASSIUM 4.2 mmol/L (3.5-5.1)
[2022-02-26 08:00] VITALS: BP 134/73
[2022-02-26] MEDS: ARIPIPRAZOLE 5 MG TABLET PO SCH ×3 (08:56→09:07)
[2022-02-26] MEDS: LEVOTHYROXINE SODIUM 50 MCG TABLET PO SCH (08:56)
[2022-02-26] MEDS: SERTRALINE HCL 50 MG TABLET PO SCH (08:56)
[2022-02-26] MEDS: PANTOPRAZOLE 40 MG TABLET.DR PO SCH (08:56)
[2022-02-26] MEDS: ASPIRIN 81 MG TAB.CHEW PO SCH ×3 (08:56→09:07)
[2022-02-26] MEDS: QUETIAPINE FUMARATE 25 MG TABLET PO SCH ×3 (08:57→17:00)
[2022-02-26 16:00] VITALS: BP 134/68
--- NOTE | 2022-02-26 19:10 | NUR ---
RN NOTES RECEIVED REPORT FROM MORNING SHIFT. PATIENT IN BED A/O X 3-4 ABLE TO MAKE NEEDS KNOWN. ON ROOM AIR SATING 98% NO SOB NO DISTRESS NOTED AT THIS TIME. WITH IV ACCESS AT R HAND # 20 PATENT FLUSHES WELL ON CONTINUOS IV 1/2 75CC/HR. ALL SAFETY MEASURES IN PLACE AT ALL TIMES. HOB ELEVATED. CALL LIGHT WITHIN REACH. WILL CONTINUE TO MONITOR THE PATIENT
[2022-02-27] VITALS: BP 131/69
[2022-02-27] MEDS: VANCOMYCIN 0.75 GM in IV D5W 250 ML IV SCH (04:08)
[2022-02-27] MEDS: PIPERACILLIN /TAZOBACTAM 4.5 G in IV D5W 50 ML IV SCH ×2 (05:13→13:22)
[2022-02-27] MEDS: oxyCODONE/APAP (5/325 MG) 1 UDTAB TABLET PO PRN ×3 (05:27→16:02)
--- NOTE | 2022-02-27 07:00 | NUR ---
RN NOTE PT IS A 66 YRLD FEMALE A/O X4 AMBULATORY ABLE TO MAKE NEEDS KNOW. NO DISTRESS OR PAIN REPORTED AT THIS ITME. PT HAS IV ACCESS ON THE L HAND 22G RUNNING 1/2 NS @75 ML/HR ALL DUE MEDS GIVEN AND TOLERATED WELL. PT NOTED WILL SOME SKIN ISSUES WOUND PICTURED TAKEN PLACE DIN CHART WOUND CONSULT ORDERED. PT ON ROOM AIR TOLERATING WELL. ALTHOUGH PT IS AMBULATORY SHE REQUESTED A PUREWICK AND BED ARIZA SHE PREFERS NOT TO GET UP DURING THE NIGHT. PT ORIENTED TO UNIT AND ROOM CALL LIGHT WITHIN REACH TABLE WITHIN REACH. BED IN LOW LOCKED POSITION, WILL ENDORSE TO DAY SHIFT NURSE.
[2022-02-27 07:41] LABS: CALCIUM, SERUM 8.2 mg/dL (8.5-10.1); CREATININE 0.5 mg/dL (0.6-1.3); POTASSIUM 4.3 mmol/L (3.5-5.1)
[2022-02-27] MEDS: PANTOPRAZOLE 40 MG TABLET.DR PO SCH (07:45)
[2022-02-27] MEDS: LEVOTHYROXINE SODIUM 50 MCG TABLET PO SCH (07:45)
--- NOTE | 2022-02-27 07:54 | NUR ---
MS RN OPENING NOTES: RECEIVED PATIENT AWAKE IN BED, BED IN LOW POSITION CALL LIGHTS WITHIN REACH, NO COMPLAIN OF PAIN AND DISCOMFORT AT THIS TIME, ON ROOM AIR SATURATING WELL, PATIENT IS A/OX 3-4 ABLE TO MAKE NEEDS KNOWN, PT PULLED OUT HER IV LINE SAYING SHE DOES NOT WANT IT IT MAKES HER URINATE A LOT, EXPLAIN RISK AND BENEFITS STILL DOESN'T WANT IT. PATIENT KEPT CLEAN AND DRY ALL NEEDS MET WILL CONTINUE TO MONITOR.
[2022-02-27 08:00] VITALS: BP 135/74
[2022-02-27] MEDS: ARIPIPRAZOLE 5 MG TABLET PO SCH (08:39)
[2022-02-27] MEDS: QUETIAPINE FUMARATE 25 MG TABLET PO SCH ×4 (08:39→16:09)
[2022-02-27] MEDS: SERTRALINE HCL 50 MG TABLET PO SCH (08:39)
[2022-02-27] MEDS: ASPIRIN 81 MG TAB.CHEW PO SCH (08:39)
--- NOTE | 2022-02-27 15:00 | NUR ---
rn notes: noted pt with yelling screaming throwing stuff from her table at staff, called security, tried to calm down , pt requested to discharge, call the doctor and call caser in, also pt pulled out her iv line does not want iv anymore,DR Edwin Lorenzana came and changed her atb to po. caser in came and arranged transfer to [facility]
[2022-02-27] MEDS ORDERED: VANCOMYCIN HCL 0.75 GM in IV D5W 250 ML IV SCH (16:00)
--- NOTE | 2022-02-27 17:15 | NUR ---
system administration advisor notes: [facility] came to [facility] pt, called lana lockharta and gave report to James.pt alert and oriented x 4. not in any distress. denied pain and discomfort verbalized percocet resolve her pain, left via gurney with 2 EMT in stable condition,picked up her belonging
== END 2022-02-27 17:15 | DRG 602 ==
LOC: ER 15:07 → MEDSG1 20:00
PROVIDERS: ADMIT Internal Medicine
DX: L03.114 Cellulitis of left upper limb (principal); L89.894 Pressure ulcer of other site, stage 4; J45.909 Unspecified asthma, uncomplicated; D64.9 Anemia, unspecified; K21.9 Gastro-esophageal reflux disease without esophagitis; I10 Essential (primary) hypertension; Z20.822 Contact with and (suspected) exposure to COVID-19; E03.9 Hypothyroidism, unspecified; Z88.5 Allergy status to narcotic agent; Z79.82 Long term (current) use of aspirin; Z79.899 Other long term (current) drug therapy; J44.9 Chronic obstructive pulmonary disease, unspecified; F20.9 Schizophrenia, unspecified; F31.9 Bipolar disorder, unspecified; D69.6 Thrombocytopenia, unspecified; L76.82 Other postprocedural complications of skin and subcutaneous tissue; Y83.9 Surgical procedure, unspecified as the cause of abnormal reaction of the patient, or of later complication, without mention of misadventure at the time of the procedure; Z98.890 Other specified postprocedural states
CPT/HCPCS: 36415; 73130-TC; 80048-TC; 80053-TC; 80076-TC; 80202-TC; 83605-TC; 83735-TC; 84100-TC; 85025-TC; 85730-TC; 87040-TC; 87081-TC; A6253; A6403; C9803; G0378; J2543; J3370; J3490; J7042; J7060

== ENCOUNTER 2022-07-20 00:14 | Inpatient (IN) | payer MEDICARE, OTHER ==
[~2022-07-20] VITALS: Ht 152.4 cm; Wt 59.9 kg
[~2022-07-20 00:14] MED LIST changes: +ASPI-1169 PO; -ASPI-1420 PO; -CYAN500T64 PO; -DOXY-226 PO; -IPRA3AMP23 IH; -KETO15CR2 TP; -LOPE2TAB25 PO; -NA P133E RC; -NEOM1OIN15 TP; -NEOM28.36 TP; +NYST15CR TP; -NYST15OI TP; -POLY B TP; -PRED20TA PO; +QUET25TA PO; -[UNRECOGNIZED DRUG - OTHER] TP
--- NOTE | 2022-07-20 00:35 | NUR ---
GARRISON FROM [facility] FOR AGITATION, ON 5150 HOLD. pt to bed 11, not in acute distress, no sob. sitter at bedside. vss. pending provider brennen
[2022-07-20 01:07] LABS: BASOPHILS % (AUTO) 0.4 % (0.0-2.0); EOSINOPHILS % (AUTO) 1.5 % (0.0-6.0); HEMATOCRIT 40 % (33-45); HEMOGLOBIN 12.5 g/dL (11.5-14.8); LYMPHOCYTES # (AUTO) 1.1 K/uL (0.8-4.8); MEAN CORPUSCULAR HGB CONC 31 g/dl (31.0-36.0); MEAN CORPUSCULAR VOLUME 90 fL (82-100); MONOCYTES # (AUTO) 0.5 K/uL (0.1-1.30); MONOCYTES % (AUTO) 9.8 % (2.0-12.0); NEUTROPHILS # (AUTO) 3.3 K/uL (1.8-8.9); NEUTROPHILS % (AUTO) 66.3 % (43.0-81.0); PLATELET COUNT (AUTO) 185 K/uL (150-450); RED BLOOD CELL COUNT(AUTO) 4.46 MIL/uL (4.0-5.2)
[2022-07-20 01:36] LABS: CALCIUM, SERUM 8.4 mg/dL (8.5-10.1); CARBON DIOXIDE 31 mmol/L (21-32); CHLORIDE 110 mmol/L (98-107); CREATININE 0.5 mg/dL (0.6-1.3); GLUCOSE 105 mg/dL (74-106); POTASSIUM 4.2 mmol/L (3.5-5.1); SODIUM SERUM 144 mmol/L (136-145); UREA NITROGEN, BLOOD 7 mg/dL (7-18)
[2022-07-20 01:47] LABS: ALANINE AMINOTRANSFERASE 1968 U/L (12-78); ALBUMIN 2.7 g/dL (3.4-5.0); ALCOHOL, BLOOD < 3 mg/dL (0-0); ALKALINE PHOSPHATASE 225 U/L (46-116); ASPARTATE AMINOTRANSFERASE 230 U/L (15-37); BILIRUBIN,DIRECT 0.6 mg/dL (0.0-0.2); BILIRUBIN,TOTAL 1.1 mg/dL (0.2-1.0); TOTAL PROTEIN, SERUM 5.6 g/dL (6.4-8.2)
[2022-07-20 03:06] LABS: BILIRUBIN,URINE 1+ (NEGATIVE); COLOR,URINE DARK YELLOW (YELLOW); LEUKOCYTE ESTERASE ,URINE TRACE (NEGATIVE); NITRITE, URINE NEGATIVE (NEGATIVE); PROTEIN,URINE NEGATIVE (NEGATIVE); UGLUCOSE TRACE mg/dL (NEGATIVE)
[2022-07-20 03:11] LABS: RBC,URINE 0-2 /HPF (0-2); WBC,URINE 0-2 /HPF (0-3)
[2022-07-20 03:12] LABS: BACTERIA,URINE Few /HPF (None Seen); SQUAMOUS EPITHELIAL CELL,UR Few /HPF (None Seen)
--- NOTE | 2022-07-20 03:35 | NUR ---
Per Dr. Shell, Pt will be admitted to med; acute hepatitis
--- NOTE | 2022-07-20 03:45 | NUR ---
EPIC PAGED PER DR SIDHU.
[2022-07-20] MEDS ORDERED: MAG HYDROX/AL HYDROX/SIMETH 30 ML UDC PO PRN (05:30)
[2022-07-20] MEDS ORDERED: ACETAMINOPHEN 325 MG TABLET PO PRN (05:30)
[2022-07-20] MEDS ORDERED: LORAZEPAM 1 MG TABLET PO PRN (05:30)
[2022-07-20] MEDS ORDERED: ONDANSETRON HCL/PF 4 MG/2 ML VIAL IVP PRN (05:30)
[2022-07-20] MEDS ORDERED: BETAMETHASONE DIP 0.05% CREAM 15 GM TUBE TP PRN (05:30)
[2022-07-20] MEDS ORDERED: CLOTRIMAZOLE 1% 15 GM TUBE TP PRN (05:30)
[2022-07-20] MEDS ORDERED: Z GUARD REMEDY 4 OZ OINT TP PRN (05:30)
[2022-07-20] MEDS ORDERED: NYSTATIN CREAM 15 GM TUBE TP PRN (05:30)
[2022-07-20] MEDS ORDERED: BISACODYL SUPP (10 MG) 10 MG/SUPP.RECT SUPP.RECT RC PRN (05:30)
[2022-07-20] MEDS ORDERED: MAGNESIUM HYDROXIDE 30 ML UDC PO PRN ×2 (05:30)
--- NOTE | 2022-07-20 07:19 | NUR ---
report given to EROS loco
--- NOTE | 2022-07-20 07:45 | NUR ---
DOG HAIR CLIPPER NOTE ADMIT 66 YEAR OLD FEMALE AT ROOM 104 ON MED-DURG MONITORING,ALERT ORIENTATED X2-3 VERBALLY RESPONSIVE ON ROOM AIR O2:97% ADMITTING DIAGNOSIS IS HEPATITICS,SHE IS ON HOLD 5150,HAS SITTER,AMBUALTORY,IV SITE IS ON LEFT FOREARM INTACT PATENT,SAFETY MEASURE IMPLEMENT, BED IN LOW POSITION AND LOCKED,CALL LIGHT WITHIN REACH,SITTER IN THE ROOM CONTINUE TO MONITOR.
[2022-07-20] MEDS: PANTOPRAZOLE 40 MG TABLET.DR PO SCH (07:59)
[2022-07-20] MEDS: LEVOTHYROXINE SODIUM 50 MCG TABLET PO SCH (07:59)
[2022-07-20 08:00] VITALS: BP 125/61
[2022-07-20] MEDS: IV NS 0.9% 1,000 ML IV PRN ×2 (08:16→23:11)
[2022-07-20] MEDS: ARIPIPRAZOLE 5 MG TABLET PO SCH (09:06)
[2022-07-20] MEDS: SERTRALINE HCL 50 MG TABLET PO SCH (09:06)
[2022-07-20] MEDS: QUETIAPINE FUMARATE 25 MG TABLET PO SCH ×3 (09:06→17:40)
[2022-07-20 16:00] VITALS: BP 107/54
--- NOTE | 2022-07-20 17:15 | NUR ---
RN NOTE REPORT GIVEN TO JADA DAS FOR CONTINUATION OF CARE
--- NOTE | 2022-07-20 17:30 | NUR ---
ms rn note received patient from mehul rn , patient alert oriented, on ra, no sob noted at this time, able to eat dinner by her self, lt fa hli intact ,on ivf as ordered , all needs attended, refused Seroquel despite explanation of importance of medication , will cont to monitor
[2022-07-20] MEDS ORDERED: NICO4LOZ MM (19:12)
[2022-07-20] MEDS ORDERED: BENZ-38 PO (19:12)
[2022-07-20] MEDS ORDERED: FERR325T24 PO (19:12)
[2022-07-20] MEDS ORDERED: BUDE10.22 IH (19:12)
[2022-07-20] MEDS ORDERED: LOPE2TAB25 PO (19:12)
--- NOTE | 2022-07-20 19:56 | NUR ---
MS RN OPENING NOTES RECEIVED PATIENT IN BED SLEEPING. A/OX4 ABLE TO MAKE NEEDS KNOWN. PATIENT ON ROOM AIR TOLERATING WELL WITH NO SIGNS OF SOB NOT IN DISTRESS. PATIENT IS MADE COMFORTABLE, NOT IN ANY PAIN AT THIS TIME. WITH IV ACCESS ON LEFT FOREARM G#22 INFUSING NS @75ML/HR IV ACCESS NOTED TO BE FLUSHING WELL AND INTACT. SAFETY MEASURES IMPLEMENTED; BED LOCKED AND IN LOWEST POSITION, SIDE RAILS UP X2, CALL LIGHT AND BEDSIDE TABLE WITHIN PATIENTS REACH.
[2022-07-20 20:00] VITALS: BP 105/57
[2022-07-21] VITALS: BP 110/55
[2022-07-21 04:00] VITALS: BP 112/59
--- NOTE | 2022-07-21 06:38 | NUR ---
MS RN CLOSING NOTES PATIENT IN BED SLEEPING BUT EASILY AWAKEN WHEN CALLED BY NAME. A/OX2-3. ABLE TO MAKE NEEDS KNOWN. PATIENT ON ROOM AIR TOLERATING WELL WITH NO SIGNS OF SOB NOT IN DISTRESS. PATIENT IS MADE COMFORTABLE, ALL DUE MEDICATIONS ARE GIVEN. NOT IN ANY PAIN AT THIS TIME. WITH IV ACCESS ON LEFT FOREARM G#22 INFUSING NS @75ML/HR IV ACCESS NOTED TO BE FLUSHING WELL AND INTACT. SAFETY MEASURES IMPLEMENTED; BED LOCKED AND IN LOWEST POSITION, SIDE RAILS UP X2, CALL LIGHT AND BEDSIDE TABLE WITHIN PATIENTS REACH. WILL ENDORSE TO NEXT SHIFT FOR CONTINUITY OF CARE.
[2022-07-21] MEDS: LEVOTHYROXINE SODIUM 50 MCG TABLET PO SCH (07:44)
[2022-07-21] MEDS: PANTOPRAZOLE 40 MG TABLET.DR PO SCH (07:44)
[2022-07-21 08:00] VITALS: BP 140/71
[2022-07-21] MEDS: ARIPIPRAZOLE 5 MG TABLET PO SCH (08:15)
[2022-07-21] MEDS: QUETIAPINE FUMARATE 25 MG TABLET PO SCH ×4 (08:15→16:18)
[2022-07-21] MEDS: SERTRALINE HCL 50 MG TABLET PO SCH (08:16)
--- NOTE | 2022-07-21 12:36 | NUR ---
REFUSED TO TAKE SEROQUEL
[2022-07-21 16:00] VITALS: BP 118/57
--- NOTE | 2022-07-21 16:45 | NUR ---
PATIENT IS DISCHARGED TO [facility] TODAY VIA AMBULANCE, PATIENT IS IN STABLE CONDITION, REPORT GIVEN TO NORMA DAS.
== END 2022-07-21 17:46 | disposition home health service (06) | DRG 433 ==
LOC: ER 00:16 → MEDSG1 07:19
DX: K74.60 Unspecified cirrhosis of liver (principal); E72.20 Disorder of urea cycle metabolism, unspecified; F29 Unspecified psychosis not due to a substance or known physiological condition; J44.9 Chronic obstructive pulmonary disease, unspecified; D64.9 Anemia, unspecified; Z20.822 Contact with and (suspected) exposure to COVID-19; F20.9 Schizophrenia, unspecified; K21.9 Gastro-esophageal reflux disease without esophagitis; F42.9 Obsessive-compulsive disorder, unspecified; E03.9 Hypothyroidism, unspecified; Z88.5 Allergy status to narcotic agent; Z79.82 Long term (current) use of aspirin; Z79.899 Other long term (current) drug therapy; Z96.651 Presence of right artificial knee joint; Z91.51 Personal history of suicidal behavior; F17.210 Nicotine dependence, cigarettes, uncomplicated; F32.A Depression, unspecified; Z62.810 Personal history of physical and sexual abuse in childhood; F43.10 Post-traumatic stress disorder, unspecified; R26.9 Unspecified abnormalities of gait and mobility; Z99.3 Dependence on wheelchair; R74.01 Elevation of levels of liver transaminase levels; K76.0 Fatty (change of) liver, not elsewhere classified
CPT/HCPCS: 36415; 76705-TC; 80048-TC; 80076-TC; 81001; 82140-TC; 85025-TC; 87081-TC; A4223; C9803; G0378; G0480; J7030